=== PATIENT | male | born 1930 | race Caucasian/White ===

== ENCOUNTER → 2018-08-22 | Outpatient (CLI) | payer MEDICARE, OTHER ==
[~2018-08-22] MED LIST: AMI200 PO; ATOR40TA69 PO; CHOL4PAC15 PO; CLO75 PO; CLOB50SO11 TP; CYAN100T25 PO; DIA2 PO; DIAZ-1 PO; DILT360C35 PO; DILT360C49 PO; DILT360T9 PO; DILTIAZEM; ENA10 PO; ENAL20TA99 PO; ENO100I SC; FLU30SYR8 IM ONLY; FLU60SYR30 IM ONLY; HYDR30CR10 TP; KETO120S14 TP; LACT-272 PO; MECL25TA9 PO; OFF PLAVIX; OFF WARFARIN; SIMV-42 PO; SIMV-44 PO; TRA50 PO; TRIA15CR40 TP; WAR5 PO; WARF5TAB23 PO; [UNRECOGNIZED DRUG - CODE] IV; [UNRECOGNIZED DRUG - CODE] PO
--- NOTE | 2018-08-22 10:00 | RADIOLOGY IMAGING REPORT ---
FACILITY: [facility] [place] PATIENT NAME: Vipul Xiao : 1930 MR: [id number] V: [id number] EXAM DATE: ORDERING PHYSICIAN: DEIM GUZMAN TECHNOLOGIST: Location: [facility] Patient: Vipul Xiao : 1930 Visit/Account:[id number] Date of Sevice: 08/22/2018 SACRUM COCCYX HISTORY: see dx Additional history: None COMPARISON: None. FINDINGS: No evidence of displaced fractures in the sacrum or coccyx. The patient has had laminectomies throug h at least L2-L5 advanced multilevel degenerative disc disease. There is levoconvex curvature to the lumbar spine possibly positional or related scoliosis. IMPRESSION: No acute fractures are seen. If there is continued strong clinical suspicion CT would be the optimal study for further evaluation Report Dictated By: Milton Curran MD at 08/22/2018 9:49 AM Report E-Signed By: Milton Curran MD at 08/22/2018 9:54 AM WSN:[id number]
== END ==
LOC: RAD 08:54
PROVIDERS: ATTEND Internal Medicine
DX: M53.3 Sacrococcygeal disorders, not elsewhere classified (principal); W19.XXXA Unspecified fall, initial encounter
CPT/HCPCS: 72220

== ENCOUNTER → 2018-08-27 | Outpatient (CLI) | payer MEDICARE, OTHER ==
[~2018-08-27] MED LIST changes: +WARF-1 PO; +WARF2.5T62 PO
--- NOTE | 2018-08-27 12:35 | RADIOLOGY IMAGING REPORT ---
FACILITY: [facility] PATIENT NAME: Vipul Xiao : 1930 MR: [id number] V: [id number] EXAM DATE: ORDERING PHYSICIAN: DEMI GUZMAN TECHNOLOGIST: Location: [facility] [place] Patient: Vipul Xiao : 1930 Visit/Account:[id number] Date of Sevice: 08/27/2018 EXAMINATION: CT of the Paranasal Sinuses HISTORY: Cough TECHNIQUE: CT was performed through the paranasal sinuses without intravenous contrast administratio n. Coronal and sagittal reformatted images were generated. One of the following dose optimization techniques was utilized in the performance of this exam: autom ated exposure control; adjustment of the mA and/or kV according to patient size; or use of iterative reconstruction technique. Specific details can be referenced in the facility's radiology CT exam ope rational policy. COMPARISON: Head CT May 23, 2017 FINDINGS: Clear mastoid air cells. Tiny left maxillary sinus mucous retention cyst. Otherwise clear sinuses. No apparent nasal cavity polyp. Patent infundibula. Bilateral grecia bullosa. Small left nasal septum spur is positioned between the left middle and infe rior turbinates. Leftward mid nasal septum deviation measures 4 mm. Rightward anterior nasal septum d eviation measures 4 mm. 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 Normal temporomandibular joints. Degenerative pannus noted posterior to the dens. The visible extracranial and intracranial structures are normal for age. IMPRESSION: 1. Tiny left maxillary sinus mucous retention cyst. Otherwise clear sinuses. 2. 4 mm nasal septum deviation, see comments above. 3. 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 Report Dictated By: Sy Craig MD at 08/27/2018 12:25 PM Report E-Signed By: Sy Craig MD at 08/27/2018 12:30 PM WSN:[id number]
== END ==
LOC: CT 01:05
PROVIDERS: ATTEND Internal Medicine
DX: R09.89 Other specified symptoms and signs involving the circulatory and respiratory systems (principal); J34.1 Cyst and mucocele of nose and nasal sinus; J34.2 Deviated nasal septum; Q37.9 Unspecified cleft palate with unilateral cleft lip
CPT/HCPCS: 70486

== ENCOUNTER 2018-09-01 19:00 | Inpatient (IN) | payer MEDICARE, OTHER ==
[~2018-09-01] VITALS: Ht 162.6 cm; Wt 52.7 kg
[~2018-09-01 19:00] MED LIST changes: -WARF-1 PO; -WARF2.5T62 PO
--- NOTE | 2018-09-01 19:25 | ER Report ---
History and Physical Time Seen By MD: 19:25 HPI/ROS CHIEF COMPLAINT: Right hip pain HISTORY OF PRESENT ILLNESS: This is an 87-year-old male who presents to the emergency department with his family for right hip pain. According to the patient, and his daughter who is at the bedside, the patient has had an increased number of falls over the last 1-2 months secondary to his unsteadiness. This past Sunday he states he fell onto a carpeted surface, onto his right side, has had intermittent right hip pain since. Yesterday however the pain was not too bad however today the pain seems to increased in intensity, patient is having a very difficult time finding a comfortable position to sit in. No internal or external rotation, no ice deformities, he has been ambulating however it is very painful. Patient denies hitting his head, no loss of co nsciousness. Upon arrival his heart rate was noted to be irregular 120's-140's. The patient states that he did forget to take his diltiazem for his known atrial fibrillation. Denies chest pain or shortness of breath. No nausea or vomiting. No headaches or any other concerns at this time. REVIEW OF SYSTEMS: Constitutional: No fever, no chills. Eyes: No discharge. ENT: No sore throat. Cardiovascular: As above. Respiratory: No cough, no shortness of breath. Gastrointestinal: No abdominal pain, no vomiting. Genitourinary: No hematuria. Musculoskeletal: As above. Skin: No rashes. Neurological: No headache. Allergies: Coded Allergies: Penicillins (Verified Allergy, Intermediate, RASH, 09/01/18) Home Meds Active Scripts Ketoconazole (KETOCONAZOLE) 120 Ml Shampoo, 1 LINCOLN TP DAILY for 30 Days, #120 TUBE 1 Refill Prov:TRAN [facility]AGA [facility] 05/16/18 Hydrocortisone 2.5 % 30 GM CREAM (Hydrocortisone 2.5 % 30 GM CREAM) 2.5 % C ream.appl, 1 LINCOLN TP BID for 30 Days, #1 TUBE 1 Refill Prov:TRAN [facility]AGA [facility] 05/16/18 Clobetasol Propionate 0.05% Solution (CLOBETASOL PROPIONATE 0.05% SOLUTION) 50 Ml Solution, 1 LINCOLN TP BID for 30 Days, #1 BOT 2 Refills Prov:TRAN [facility] 02/14/18 Triamcinolone Acetonide 0.1% Cr 15 Gm Tube (TRIAMCINOLONE ACETONIDE 0.1% CREAM) 15 Gm Cream..g., 1 LINCOLN TP BID, #60 GM 3 Refills Prov:VICKI GILLIAM PHARMD 01/07/18 Lactose-Free Food/Fiber (JEVITY 1.5 DAVIS LIQUID) 1,000 Ml Liquid, 1000 ML PO QDAY, #30 BOTTLE 11 Refills Prov:VICKI GILLIAM PHARMD 03/06/16 Reported Medications Warfarin Sodium (COUMADIN) 5 Mg Tablet, 5 MG PO SUNDAY, SUNDAY, Sunday09/01/18 Warfarin Sodium (COUMADIN) 2.5 Mg Tablet, 2.5 MG PO sunday, sunday, sunday,Sunday09/01/18 Diltiazem Hcl (DILTIAZEM 24HR ER) 360 Mg Cap.er.24h, 1 CAP PO QDAY, CAP 04/21/15 Atorvastatin Calcium (ATORVASTATIN CALCIUM) 40 Mg Tablet, 0.5 TAB PO QDAY, TAB 02/22/15 Discontinued Reported Medications Tramadol Hcl (Ultram) 50 Mg Tab, 1 TAB PO QID PRN for pain, 0 Refills 01/06/10 Discontinued Scripts Warfarin Sodium (WARFARIN SODIUM) 5 Mg Tablet, 5 MG PO DIRECTED, #90 TAB 3 Refills Prov:DEMI GUZMAN MD 05/29/17 Meclizine Hcl (MECLIZINE HCL) 25 Mg Tablet, 25 MG PO Q6-8H PRN for DIZZINESS, #15 MG Prov:BITA CHAVEZ DO 05/23/17 Past Medical/Surgical History The patient has a past medical and surgical history of aneurysm of iliac artery, atrial fibrillation, hypertension, hypercholesterolemia, pulmonary embolus, colonoscopy with polyps removed, hiatal hernia, scoliosis, arthritis, multiple fractures, "cracked pelvis", chronic back pain, wears glasses, anxiety, appendectomy, laminectomy. Reviewed Nurses Notes: Yes Hx Smoking: Yes Smoking Status: Former Smoker Hx Substance Use Disorder: No Hx Alcohol Use: Yes Constitutional Vital Sign - Last 24 Hours 09/01/18 09/01/18 09/01/18 09/01/18 19:24 19:30 19:31 19:40 Temp 98.3 Pulse 124 137 Resp 0 19 B/P (MAP) 130/111 (117) 130/111 146/104 (118) Pulse Ox 88 93 O2 Delivery Room Air 09/01/18 09/01/18 09/01/18 09/01/18 20:00 20:05 20:20 20:30 Pulse 116 111 Resp 10 8 B/P (MAP) 137/85 (102) 148/121 (130) Pulse Ox 81 93 O2 Flow Rate 2.0 09/01/18 09/01/18 09/01/18 09/01/18 20:40 21:00 21:20 21:30 Pulse ??? 114 Resp 10 B/P (MAP) 147/116 (126) ???/??? (1665) 137/104 (115) Pulse Ox 89 09/01/18 09/01/18 09/01/18 09/01/18 21:40 22:00 22:20 22:30 Pulse 113 116 Resp 14 16 B/P (MAP) 131/91 (104) 137/89 (105) 139/96 (110) Pulse Ox 98 98 09/01/18 22:40 B/P (MAP) 147/109 (122) Physical Exam General Appearance: The patient is alert, has no immediate need for airway protection and no signs of toxicity. Eyes: Pupils equal and round no pallor or injection. ENT, Mouth: Mucous membranes are moist. Respiratory: There are no retractions, lungs are clear to auscultation. Cardiovascular: Irregular rate and rhythm. No murmurs, clicks or rubs. Gastrointestinal: Abdomen is soft and non tender, no masses, bowel sounds normal. Neurological: Alert and oriented 4. Moving all extremities. Following all commands. No focal neuro deficits. Skin: Warm and dry, no rashes. Healing wound to the scalp. Musculoskeletal: Neck is supple non tender. Extremities tenderness to the right hip and proximal femur. No crepitus or obvious deformities identified. No contusions or swelling. No internal or external rotation. DIFFERENTIAL DIAGNOSIS: After history and physical exam differential diagnosis was considered for fracture, contusion, hematoma. Medical Decision Making Data Points Result Diagram: 09/01/18 1936 09/02/18 0518 Laboratory Hematology Test 09/01/18 19:36 Red Blood Count 4.71 M/uL (4.00-5.60) Mean Corpuscular Volume 104.7 fL (80.0-96.0) Mean Corpuscular Hemoglobin 35.1 pg (26.0-33.0) Mean Corpuscular Hemoglobin Concent 33.5 g/dL (32.0-36.0) Red Cell Distribution Width 15.3 % (11.5-14.5) Mean Platelet Volume 9.1 fL (7.2-11.1) Neutrophils (%) (Auto) 77.6 % (39.4-72.5) Lymphocytes (%) (Auto) 8.9 % (17.6-49.6) Monocytes (%) (Auto) 11.1 % (4.1-12.4) Eosinophils (%) (Auto) 0.7 % (0.4-6.7) Basophils (%) (Auto) 1.7 % (0.3-1.4) Nucleated RBC Relative Count (auto) 0.1 /100WBC Neutrophils # (Auto) 6.7 K/uL (2.0-7.4) Lymphocytes # (Auto) 0.8 K/uL (1.3-3.6) Monocytes # (Auto) 1.0 K/uL (0.3-1.0) Eosinophils # (Auto) 0.1 K/uL (0.0-0.5) Basophils # (Auto) 0.1 K/uL (0.0-0.1) Nucleated RBC Absolute Count (auto) 0.01 K/uL Peripheral Blood Smear No Y/N Prothrombin Time 26.5 seconds (12.0-14.4) Prothromb Time International Ratio 2.39 Activated Partial Thromboplast Time 53 seconds (23-35) Troponin I 0.023 ng/ml Chemistry Test 09/01/18 19:36 White Blood Count 8.6 k/uL (4.5-11.0) Red Blood Count 4.71 M/uL (4.00-5.60) Hemoglobin 16.5 g/dL (14.0-18.0) Hematocrit 49.3 % (42.0-52.0) Mean Corpuscular Volume 104.7 fL (80.0-96.0) Mean Corpuscular Hemoglobin 35.1 pg (26.0-33.0) Mean Corpuscular Hemoglobin Concent 33.5 g/dL (32.0-36.0) Red Cell Distribution Width 15.3 % (11.5-14.5) Platelet Count 113 K/uL (150-450) Mean Platelet Volume 9.1 fL (7.2-11.1) Neutrophils (%) (Auto) 77.6 % (39.4-72.5) Lymphocytes (%) (Auto) 8.9 % (17.6-49.6) Monocytes (%) (Auto) 11.1 % (4.1-12.4) Eosinophils (%) (Auto) 0.7 % (0.4-6.7) Basophils (%) (Auto) 1.7 % (0.3-1.4) Nucleated RBC Relative Count (auto) 0.1 /100WBC Neutrophils # (Auto) 6.7 K/uL (2.0-7.4) Lymphocytes # (Auto) 0.8 K/uL (1.3-3.6) Monocytes # (Auto) 1.0 K/uL (0.3-1.0) Eosinophils # (Auto) 0.1 K/uL (0.0-0.5) Basophils # (Auto) 0.1 K/uL (0.0-0.1) Nucleated RBC Absolute Count (auto) 0.01 K/uL Peripheral Blood Smear No Y/N Prothrombin Time 26.5 seconds (12.0-14.4) Prothromb Time International Ratio 2.39 Activated Partial Thromboplast Time 53 seconds (23-35) Troponin I 0.023 ng/ml Coagulation Test 09/01/18 19:36 Prothrombin Time 26.5 seconds Prothromb Time International Ratio 2.39 Activated Partial Thromboplast Time 53 seconds EKG/Imaging EKG Interpretation 12 lead EKG: Time of EKG 1929. Rhythm: Atrial fibrillation with RVR, ventricular rate 119. Joseph: normal QRS: normal ST segments: No ST depression or elevation identified. 05/23/2017 EKG showing atrial flutter, no other significant changes noted. Imaging Location: [facility] - [place], [place] Patient: Vipul Xiao : 1930 Visit/Account:[id number] Date of Sevice: 09/01/2018 CT of the pelvis without contrast: Indication: Fall. Technique: Helical CT was performed through the pelvis without contrast. Multiplanar reconstructions are reviewed. One of the following dose optimization techniques was utilized in the performance of this exam: Automated exposure control; adjustment of the mA and/or kV according to the patient's size; or use of an iterative reconstruction technique. Specific details can be referenced in the facility's radiology CT exam operational policy. Comparison: Plain radiographs dated 08/22/2018. Findings: There appear to be recent nondisplaced fractures in both sacral wings, best visualized in the axial plane. No other acute skeletal deformities are clearly identified. In particular, there are no signs of hip fracture or dislocation. There are chronic osteoarthritic changes in the bilateral sacroiliac joints. There is marked degenerative disc disease and osteoarthritis in the lower lumbar spine. There is uniform mineralization of the skeletal structures. No destructive skeletal lesions are identified. No focal soft tissue deformity or fluid collection is clearly identified. There is diffuse atherosclerotic calcification in the distal aorta, iliac, and proximal femoral arteries. Impression: There appear to be recent nondisplaced fractures in both sacral wings. No other acute skeletal deformities are clearly identified. Report Dictated By: Mathieu Storm MD at 09/01/2018 9:53 PM Report E-Signed By: Mathieu Storm MD at 09/01/2018 10:10 PM WSN:[id number] Location: [facility] - [place], [place] Patient: Vipul Xiao : 1930 Visit/Account:[id number] Date of Sevice: 09/01/2018 CT of the right femur, without contrast: Indication: Fall. Technique: Helical CT was performed through the right femur without contrast. Axial, coronal, and sagittal reconstructions are reviewed. Images near the right knee are suboptimal, due to motion artifact. One of the following dose optimization techniques was utilized in the performance of this exam: Automated exposure control; adjustment of the mA and/or kV according to the patient's size; or use of an iterative reconstruction technique. Specific details can be referenced in the facility's radiology CT exam operational policy. Comparison: None available. Findings: There is no definite evidence of fracture, dislocation, or acute skeletal deformity. A fracture of the distal femur or patella cannot be excluded, due to motion artifact. If clinically indicated, follow-up evaluation with plain radiographs is suggested. There is normal mineralization of the visualized skeletal structures. No destructive skeletal lesions are identified. There is no significant arthritis in the right hip. No evidence of focal soft tissue deformity or fluid collection. There is diffuse atherosclerotic calcification in the iliac, femoral, and popliteal arteries. Impression: No definite evidence of fracture, dislocation, or acute skeletal deformity. Report Dictated By: Mathieu Storm MD at 09/01/2018 10:10 PM Report E-Signed By: Mathieu Storm MD at 09/01/2018 10:18 PM WSN:[id number] Location: [facility] - [place], [place] Patient: Vipul Xiao : 1930 Visit/Account:[id number] Date of Sevice: 09/01/2018 PORTABLE CHEST: Indication: Injury. Technique: A single frontal film was obtained. Comparison: 05/23/2017 Skeletal and soft tissue structures: There are chronic degenerative changes in the left shoulder and thoracic spine. No acute skeletal deformity is clearly identified. Heart and mediastinum: There is moderate cardiomegaly. The mediastinal contours appear normal. Lung mims: Well-expanded and clear. No acute parenchymal process is identified. Pleural spaces: Unremarkable. Impression: Cardiomegaly. No acute process is identified in the lung mims. Report Dictated By: Mathieu Storm MD at 09/01/2018 9:48 PM Report E-Signed By: Mathieu Storm MD at 09/01/2018 9:53 PM WSN:[id number] ED Course/Re-evaluation Clinical Indication for ER IV: IV Access ED Course The patient was admitted to room. A history and physical were obtained. Differ ential diagnoses were considered. An IV was started. A CBC, CMP, troponin were obtained. EKG showing atrial fibrillation with RVR at a rate of 119. The patient was given 50 mg IV diltiazem, followed by 120 mg extended release diltiazem. CBC showing MCV 104.7, MCH 35.1, platelets 113, chemistry showing alk phosphatase 206, negative troponin, INR 2.39. After reviewing the patient's historical data from 2017 lab studies are within the patient's normal limits other than alk phosphatase is elevated. A CT of the pelvis is showing a recent nondisplaced fracture of both sacral wings, no other acute abnormalities of the pelvis or femur. I reviewed the case with Dr. Smith as noted below, else reviewed the case with Dr. Emma mcnair the hospitalist as noted below. I reviewed the results with the patient and his family we discussed and admission to the hospital, they are in agreement with an admission for pain control, as well as physical and occupational therapy and possible evaluation for home health. The patient was also given 50 g IV fentanyl which drastically reduced the patient's discomfort. 09/01/2018 10:25:33 pm I did speak with Dr. Smith, the orthopedist bone process operator regarding the patient's case, this is a nonsurgical injury. Weightbearing and ambulation as tolerated. 09/01/2018 10:39:46 pm I did speak with Dr. Nathan mcnair, the hospitalist bone process operator regarding the patient's case, we discussed the case, he's accepted the patient into the hospitalist services. Patient will be admitted to the medical floor. Decision to Disposition Date: Sep 01, 2018 Decision to Disposition Time: 22:39 Depart Departure Latest Vital Signs Vital Signs Date Time Temp Pulse Resp B/P (MAP) Pulse Ox O2 Delivery O2 Flow Rate FiO2 09/01/18 22:40 147/109 (122) 09/01/18 22:30 116 16 98 09/01/18 20:05 2.0 09/01/18 19:31 98.3 Room Air Impression: Primary Impression: Fracture of sacrum without disruption of pelvic ring Additional Impressions: Fall in home Atrial fibrillation Condition: Improved Disposition: Admitted from ER Referrals: DEMI GUZMAN MD (PCP) Problem Qualifiers Additional Impressions: Fall in home Encounter type: initial encounter Qualified Codes: W19.XXXA - Unspecified fall, initial encounter; Y92.009 - Unspecified place in unspecified non- institutional (private) residence as the place of occurrence of the external cause Atrial fibrillation Atrial fibrillation type: chronic Qualified Codes: I48.2 - Chronic atrial fibrillation UMER RUBIOP- Sep 01, 2018 19:25
[2018-09-01] MEDS ORDERED: DILTIAZEM 5 MG/ML 5ML IVPUSH IVP ONE (19:50)
[2018-09-01 19:57] LABS: PLATELET COUNT, AUTOMATED 113 K/uL (150-450)
[2018-09-01 20:03] LABS: INR 2.39
[2018-09-01] MEDS ORDERED: fentaNYL CITR 100 MCG/2 ML AMP IVP ONE (20:05)
[2018-09-01] MEDS ORDERED: DILTIAZEM CD 120 MG CAPCR PO ONE (20:25)
--- NOTE | 2018-09-01 20:33 | EKG ---
FACILITY: [facility] PATIENT NAME: VALARIE CARR : [id number] MR: [id number] V: [id number] EXAM DATE: ORDERING PHYSICIAN: UMER RUBIO TECHNOLOGIST: FRANCA Test Reason : A FIB Blood Pressure : / mmHG Vent. Rate : 119 BPM Atrial Rate : 093 BPM P-R Int : 000 ms QRS Dur : 098 ms QT Int : 296 ms P-R-T Axes : 000 016 068 degrees QTc Int : 416 ms Atrial fibrillation with rapid ventricular response Incomplete right bundle branch block Abnormal ECG When compared with ECG of 23-MAY-2017 15:19, Atrial fibrillation has replaced Atrial flutter Confirmed by Dario Carson ([id number]) on 09/01/2018 11:16:00 PM Referred By: Confirmed By:Dario Marino
--- NOTE | 2018-09-01 21:58 | RADIOLOGY IMAGING REPORT ---
FACILITY: [facility] PATIENT NAME: Vipul Xiao : 1930 MR: [id number] V: [id number] EXAM DATE: ORDERING PHYSICIAN: UMER RUBIO TECHNOLOGIST: Location: [facility] Patient: Vipul Xiao : 1930 Visit/Account:[id number] Date of Sevice: 09/01/2018 PORTABLE CHEST: Indication: Injury. Technique: A single frontal film was obtained. Comparison: 05/23/2017 Skeletal and soft tissue structures: There are chronic degenerative changes in the left shoulder and thoracic spine. No acute skeletal deformity is clearly identified. Heart and mediastinum: There is moderate cardiomegaly. The mediastinal contours appear normal. Lung mims: Well-expanded and clear. No acute parenchymal process is identified. Pleural spaces: Unremarkable. Impression: Cardiomegaly. No acute process is identified in the lung mims. Report Dictated By: Mathieu Storm MD at 09/01/2018 9:48 PM Report E-Signed By: Mathieu Storm MD at 09/01/2018 9:53 PM WSN:[id number]
--- NOTE | 2018-09-01 22:14 | RADIOLOGY IMAGING REPORT ---
FACILITY: [facility] PATIENT NAME: Vipul Xiao : 1930 MR: [id number] V: [id number] EXAM DATE: ORDERING PHYSICIAN: UMER RUBIO TECHNOLOGIST: Location: [place] [facility] - [place] Patient: Vipul Xiao : 1930 Visit/Account:[id number] Date of Sevice: 09/01/2018 CT of the pelvis without contrast: Indication: Fall. Technique: Helical CT was performed through the pelvis without contrast. Multiplanar reconstructions are reviewed. One of the following dose optimization techniques was utilized in the performance of th is exam: Automated exposure control; adjustment of the mA and/or kV according to the patient's size; or use of an iterative reconstruction technique. Specific details can be referenced in the facility's radiology CT exam operational policy. Comparison: Plain radiographs dated 08/22/2018. Findings: There appear to be recent nondisplaced fractures in both sacral wings, best visualized in the axial p marguerite. No other acute skeletal deformities are clearly identified. In particular, there are no signs o f hip fracture or dislocation. There are chronic osteoarthritic changes in the bilateral sacroiliac joints. There is marked degenera tive disc disease and osteoarthritis in the lower lumbar spine. There is uniform mineralization of e skeletal structures. No destructive skeletal lesions are identified. No focal soft tissue deformity or fluid collection is clearly identified. There is diffuse atheroscle rotic calcification in the distal aorta, iliac, and proximal femoral arteries. Impression: There appear to be recent nondisplaced fractures in both sacral wings. No other acute ske letal deformities are clearly identified. Report Dictated By: Mathieu Storm MD at 09/01/2018 9:53 PM Report E-Signed By: Mathieu Storm MD at 09/01/2018 10:10 PM WSN:[id number]
--- NOTE | 2018-09-01 22:22 | RADIOLOGY IMAGING REPORT ---
FACILITY: [facility] - [place] PATIENT NAME: Vipul Xiao : 1930 MR: [id number] V: [id number] EXAM DATE: ORDERING PHYSICIAN: UMER RUBIO TECHNOLOGIST: Location: [facility] - [place] Patient: Vipul Xiao : 1930 Visit/Account:[id number] Date of Sevice: 09/01/2018 CT of the right femur, without contrast: Indication: Fall. Technique: Helical CT was performed through the right femur without contrast. Axial, coronal, and sag ittal reconstructions are reviewed. Images near the right knee are suboptimal, due to motion artifact . One of the following dose optimization techniques was utilized in the performance of this exam: Autom ated exposure control; adjustment of the mA and/or kV according to the patient's size; or use of an i terative reconstruction technique. Specific details can be referenced in the facility's radiology CT exam operational policy. Comparison: None available. Findings: There is no definite evidence of fracture, dislocation, or acute skeletal deformity. A frac ture of the distal femur or patella cannot be excluded, due to motion artifact. If clinically indicat ed, follow-up evaluation with plain radiographs is suggested. There is normal mineralization of the visualized skeletal structures. No destructive skeletal lesions are identified. There is no significant arthritis in the right hip. No evidence of focal soft tissue deformity or fluid collection. There is diffuse atherosclerotic calc ification in the iliac, femoral, and popliteal arteries. Impression: No definite evidence of fracture, dislocation, or acute skeletal deformity. Report Dictated By: Mathieu Storm MD at 09/01/2018 10:10 PM Report E-Signed By: Mathieu Storm MD at 09/01/2018 10:18 PM WSN:[id number]
--- NOTE | 2018-09-01 22:56 | History & Physical ---
History of Present Illness Chief Complaint Hip pain History of Present Illness 87M with an increased number of falls over the last 1-2 months secondary to his unsteadiness. Sunday he fell onto a carpeted surface, onto his right side,intermittent right hip pain since. Prior to presentation increased in intensity, patient is having a very difficult time finding a comfortable position to sit in. Pain on ambulation which is making him a max assist with ambulation. The patient states that he did forget to take his diltiazem for his known atrial fibrillation and is in afib with RVR on arrival. He is being admitted for pain control, monitoring of heart rate, evaluation by PT/OT. 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 (3) Obstructive sleep apnea Status: Chronic (4) Essential hypertension Status: Chronic Home Meds Active Scripts Ketoconazole (KETOCONAZOLE) 120 Ml Shampoo, 1 [facility] TP DAILY for 30 Days, #120 TUBE 1 Refill Prov:TRAN ARTEAGA [facility] 05/16/18 Hydrocortisone 2.5 % 30 GM CREAM (Hydrocortisone 2.5 % 30 GM CREAM) 2.5 % Cream.appl, 1 [place] TP BID for 30 Days, #1 TUBE 1 Refill Prov:TRAN ARTEAGA [facility] 05/16/18 Clobetasol Propionate 0.05% Solution (CLOBETASOL PROPIONATE 0.05% SOLUTION) 50 Ml Solution, 1 [place] TP BID for 30 Days, #1 BOT 2 Refills Prov:TRAN ARTEAGA [facility] 02/14/18 Triamcinolone Acetonide 0.1% Cr 15 Gm Tube (TRIAMCINOLONE ACETONIDE 0.1% CREAM) 15 Gm Cream..g., 1 [place] TP BID, #60 GM 3 Refills Prov:VICKI GILLIAM PHARMD 01/07/18 Lactose-Free Food/Fiber (JEVITY 1.5 DAVIS LIQUID) 1,000 Ml Liquid, 1000 ML PO QDAY, #30 BOTTLE 11 Refills Prov:VICKI GILLIAM PHARMD 03/06/16 Reported Medications Warfarin Sodium (COUMADIN) 5 Mg Tablet, 5 MG PO SUNDAY, SUNDAY, Sunday09/01/18 Warfarin Sodium (COUMADIN) 2.5 Mg Tablet, 2.5 MG PO sunday, sunday, sunday,Sunday09/01/18 Diltiazem Hcl (DILTIAZEM 24HR ER) 360 Mg Cap.er.24h, 1 CAP PO QDAY, CAP 04/21/15 Atorvastatin Calcium (ATORVASTATIN CALCIUM) 40 Mg Tablet, 0.5 TAB PO QDAY, TAB 02/22/15 Discontinued Reported Medications Tramadol Hcl (Ultram) 50 Mg Tab, 1 TAB PO QID PRN for pain, 0 Refills 01/06/10 Discontinued Scripts Warfarin Sodium (WARFARIN SODIUM) 5 Mg Tablet, 5 MG PO DIRECTED, #90 TAB 3 Refills Prov:DEMI GUZMAN MD 05/29/17 Meclizine Hcl (MECLIZINE HCL) 25 Mg Tablet, 25 MG PO Q6-8H PRN for DIZZINESS, #15 MG Prov:BITA CHAVEZ DO 05/23/17 Allergies: Coded Allergies: Penicillins (Verified Allergy, Intermediate, RASH, 09/01/18) Patient History: Abdominal aortic aneurysm MOTHER, , Age:65 FH: abdominal aortic aneurysm FH: alcohol abuse FATHER, , Age:77 FH: cancer FATHER, , Age:77 Hx Smoking: Yes Smoking Status: Former Smoker Hx Alcohol Use: Yes Hx Substance Use Disorder: No Review of Systems Neurological: No Confusion, No Weakness Cardiovascular: No Chest Pain Respiratory: No Shortness of Breath Gastrointestinal: No Nausea, No Vomiting Musculoskeletal: Pain Exam Vital Signs Vital Signs Date Time Temp Pulse Resp B/P (MAP) Pulse Ox O2 Delivery O2 Flow Rate FiO2 09/01/18 23:54 114 09/01/18 23:00 12 122/89 (100) 82 09/01/18 20:05 2.0 09/01/18 19:31 98.3 Room Air General Appearance: Alert, Awake, No Acute Distress, Afebrile Neuro: No Gross deficits ENT: Normal Cardiovascular: Other (Irregularly irregular) Respiratory: No Respiratory Distress GI: Abd Soft and Non-Tender Extremities: Soft and Non Tender, Warm, Pulses, Perfused; No Edema Integumentary: Skin Intact without Lesion / Mass, Other (venous stasis changes to anterior tibial area) Medical Decision Making Data Points Result Diagram: 09/01/18193509/01/181935 Assessment and Plan Problems: (1) Atrial fibrillation with RVR Assessment & Plan: Given IV diltiazem loading dose and PO dose in ER. Will monitor on telemetry and continue home dose. (2) Fracture of sacrum without disruption of pelvic ring Status: Acute Assessment & Plan: Will provide pain control and have PT/OT evaluate patient. May need further rehab given frequent falls. (3) Alkaline phosphatase elevation Assessment & Plan: Unclear etiology, GGT pending to evaluate for biliary vs bone source. (4) Atrial fibrillation Status: Chronic Assessment & Plan: On chronic diltiazem, continued. Venous Thromboembolism Antithrombotics Is Pt On Any Antithrombotics?: Yes Exam Sepsis Risk: No Definite Risk BURGOS TAMI WELCH DO Sep 01, 2018 22:56
[2018-09-01] MEDS ORDERED: INFLUENZA VIRUS VAC 0.5ML SYR IM ONLY ONE (23:00)
[2018-09-01] MEDS ORDERED: ACETAMINOPHEN 325 MG TAB PO PRN (23:00)
[2018-09-01] MEDS ORDERED: IBUPROFEN 200 MG TAB PO PRN (23:00)
[2018-09-01] MEDS ORDERED: ONDANSETRON 4 MG/2 ML VIAL IVP PRN (23:00)
[2018-09-01] MEDS ORDERED: FLUSH 10 ML SYR IVP PRN (23:00)
[2018-09-01] MEDS ORDERED: MECLIZINE HCL 25 MG TAB PO PRN (23:00)
[2018-09-01 23:35] VITALS: BP 116/90
[2018-09-01] MEDS ORDERED: WARF2.5T62 PO (23:52)
[2018-09-01] MEDS ORDERED: WARF-1 PO (23:53)
[2018-09-02 03:24] VITALS: BP 142/97
[2018-09-02 07:34] VITALS: BP 127/78
[2018-09-02] MEDS: DILTIAZEM CD 180 MG CAPCR PO SCH (09:16)
--- NOTE | 2018-09-02 09:58 | Hospitalist Progress Note ---
Subjective Progress Notes Subjective He was admitted after sacral wing fracture. He denies any pain this morning. He still has not been out of bed yet. Patient Complains of: Cardiovascular: No: Chest Pain Respiratory: No: Shortness of Breath Physical Exam Vital Signs Date Time Temp Pulse Resp B/P (MAP) Pulse Ox O2 Delivery O2 Flow Rate FiO2 09/02/18 07:40 86 Room Air 09/02/18 07:34 98.0 116 20 127/78 (94) 2.0 Intake and Output 09/02/18 07:00 Intake Total 50 ml Balance 50 ml Intake Oral 50 ml # Voids 3 General Appearance: Alert, Awake, No Acute Distress, Afebrile Neuro: No Gross deficits Cardiovascular: Regular Rate and Rhythm Respiratory: No Respiratory Distress, Clear to Auscultation Psych: Alert & Oriented X3, Appropriate Mood & Affect Result Diagram: 09/01/18 19309/02/18 0518 Assessment and Plan Problems: (1) Atrial fibrillation with RVR Assessment & Plan: Given IV diltiazem loading dose and PO dose in ER. Will monitor on telemetry and continue home dose. (2) Fracture of sacrum without disruption of pelvic ring Status: Acute Assessment & Plan: Will provide pain control and have PT/OT evaluate patient. May need further rehab given frequent falls. (3) Alkaline phosphatase elevation Assessment & Plan: Unclear etiology, GGT pending to evaluate for biliary vs bone source. (4) Atrial fibrillation Status: Chronic Assessment & Plan: On chronic diltiazem, continued. Exam Sepsis Risk: No Definite Risk CASSIDY JONES MANAGER ENVIRONMENTAL Sep 02, 2018 09:58
[2018-09-02 10:17] VITALS: Ht 162.6 cm; Wt 52.7 kg
[2018-09-02 11:03] VITALS: BP 121/75
[2018-09-02] MEDS: TRIAMCINOLONE ACE 0.1% CR 15GM TP SCH ×2 (11:37→20:33)
--- NOTE | 2018-09-02 12:43 | NUR ---
Physical Therapy Impression PT eval complete. Pt requires Mod A for bed mobility and Mod A to perform stand pivot transfer bed>shower chair using RW. Recommend short-term subacute rehab. Physical Therapy Goals 1. Mod I bed mobility. 2. Mod I transfers. 3. Mod I gait x 150' with RW. 4. Ascend/descend 3 stairs Mod I. Patient's Goals
--- NOTE | 2018-09-02 12:49 | NUR ---
Occupational Therapy Impression OT evaluation completed with PT. Pt. would benefit from OT services 5x/ week to increase independence with ADL's. Pt. will need further rehab prior to d/c to home- short term subacute rehab is recommended. Occupational Therapy Goals 1. Pt. to perform showering activities with Min A. 2. Pt. to perform toileting activities with Mod I. 3. Pt. to perform dressing activities with Min A. 4. Pt. to perform grooming activities with I. Patient's Goal
[2018-09-02] MEDS ORDERED: WARFARIN SOD 5 MG TAB PO SCH ×2 (13:00)
[2018-09-02] MEDS: LIDOCAINE 5% PATCH TP SCH (13:30)
[2018-09-02 15:02] VITALS: BP 126/72
[2018-09-02 20:13] VITALS: BP 104/63
[2018-09-02] MEDS: PATCH REMOVAL 1 EA TP SCH (20:33)
[2018-09-02] MEDS: ATORVASTATIN 10 MG TAB PO SCH (20:33)
[2018-09-02] MEDS: APAP/HYDROCODONE 325/5 TAB PO PRN (22:23)
[2018-09-03 05:05] VITALS: BP 121/88
[2018-09-03 07:18] VITALS: BP 116/76
--- NOTE | 2018-09-03 08:04 | NUR ---
ECF Referral - met with patient who is eager to get stronger and go home. Explained rehab philosophy and answered questions for him. PASRR negative. Will complete his qualifying stay tonight, is eligible for admission 09/04/18 if he remains medically stable.
--- NOTE | 2018-09-03 08:16 | Hospitalist Progress Note ---
Subjective Progress Notes Subjective He was admitted after sacral wing fracture. He denies any pain when resting in bed. He continues to work with therapy, and have recommended short term acute rehab. Patient Complains of: Cardiovascular: No: Chest Pain Respiratory: No: Shortness of Breath Physical Exam Vital Signs Date Time Temp Pulse Resp B/P (MAP) Pulse Ox O2 Delivery O2 Flow Rate FiO2 09/03/18 07:18 98.1 89 20 116/76 (89) 94 Nasal Cannula 1.0 Intake and Output 09/03/18 06:59 Intake Total 1090 ml Balance 1090 ml Intake Oral 1090 ml # Voids 5 General Appearance: Alert, Awake, No Acute Distress, Afebrile Neuro: No Gross deficits Cardiovascular: Regular Rate and Rhythm Respiratory: No Respiratory Distress, Clear to Auscultation GI: Soft and Non-Tender Extremities: Warm, Perfused; No Edema Psych: Alert & Oriented X3, Appropriate Mood & Affect Result Diagram: 09/01/18193509/02/18 0518 Assessment and Plan Problems: (1) Atrial fibrillation with RVR Assessment & Plan: He was noted to have AFib with RVR in the emergency department. He was given IV diltiazem loading dose and PO dose in ER. He was monitored on telemetry and then resumed his home dose. (2) Fracture of sacrum without disruption of pelvic ring Status: Acute Assessment & Plan: Will provide pain control and have PT/OT evaluate patient. May need further rehab given frequent falls. (3) Alkaline phosphatase elevation Assessment & Plan: Unclear etiology, GGT pending to evaluate for biliary vs bone source. (4) Atrial fibrillation Status: Chronic Assessment & Plan: On chronic diltiazem, continued. Exam Sepsis Risk: No Definite Risk Problem Qualifiers (1) Atrial fibrillation: Atrial fibrillation type: chronic Qualified Codes: I48.2 - Chronic atrial fibrillation CASSIDY JONES COMMUNITY SERVICE ORGANIZATION DIRECTOR Sep 03, 2018 08:16
[2018-09-03] MEDS: DILTIAZEM CD 180 MG CAPCR PO SCH (09:10)
[2018-09-03] MEDS: TRIAMCINOLONE ACE 0.1% CR 15GM TP SCH ×2 (09:10→20:22)
[2018-09-03] MEDS: LIDOCAINE 5% PATCH TP SCH (09:10)
[2018-09-03 11:12] VITALS: BP 115/78
[2018-09-03] MEDS: APAP/HYDROCODONE 325/5 TAB PO PRN ×2 (12:55→22:47)
[2018-09-03] MEDS ORDERED: WARFARIN SOD 2.5 MG TAB PO SCH (13:00)
--- NOTE | 2018-09-03 13:24 | NUR ---
Occupational Therapy Impression Co-treat with PT. Pt. performed stand step pivot transfer from EOB to elizabeth chair with use of FWW with Min A. Pt. required verbal cues in order to perform a controlled stand to sit transfer (reaching back with hands for chair). Recommend short term subacute rehab upon d/c. Occupational Therapy Goals 1. Pt. to perform showering activities with Min A. 2. Pt. to perform toileting activities with Mod I. 3. Pt. to perform dressing activities with Min A. 4. Pt. to perform grooming activities with I. Patient's Goal
[2018-09-03] MEDS ORDERED: LACT-272 PO (14:55)
[2018-09-03 16:15] VITALS: BP 115/86
[2018-09-03 18:58] VITALS: BP 107/75
[2018-09-03] MEDS: PATCH REMOVAL 1 EA TP SCH (20:22)
[2018-09-03] MEDS: ATORVASTATIN 10 MG TAB PO SCH (20:22)
[2018-09-04 04:53] VITALS: BP 125/73
[2018-09-04 06:54] VITALS: BP 127/81
[2018-09-04] MEDS: TRIAMCINOLONE ACE 0.1% CR 15GM TP SCH (08:42)
[2018-09-04] MEDS: DILTIAZEM CD 180 MG CAPCR PO SCH (08:42)
[2018-09-04] MEDS: LIDOCAINE 5% PATCH TP SCH (08:43)
--- NOTE | 2018-09-04 08:59 | Transfer Summary (ECF/SWB) ---
Transfer Summary (ECF/SWB) Problems: (1) Atrial fibrillation with RVR Assessment & Plan: He was noted to have AFib with RVR in the emergency d epartment. He was given IV diltiazem loading dose and PO dose in ER. He was monitored on telemetry and then resumed his home dose. (2) Fracture of sacrum without disruption of pelvic ring Status: Acute Assessment & Plan: He presented with a bilateral sacrum wing fracture. He was provided with pain control and PT/OT evaluated patient. It was recommended he have subacute short term rehab. (3) Alkaline phosphatase elevation Assessment & Plan: He presented with elevated Alkaline phosphatase. Unclear etiology, GGT slightly elevated at 141. GGT was to evaluate for biliary vs bone source. He does drink a glass of wine daily for many years, and does use Tylenol for pain frequently. He appears to have elevation noted from 2017. We will continue to trend the labs on ECF. (4) Atrial fibrillation Status: Chronic Assessment & Plan: On chronic diltiazem, continued. Latest Vital Signs Vital Signs Date Time Temp Pulse Resp B/P (MAP) Pulse Ox O2 Delivery O2 Flow Rate FiO2 09/04/18 07:34 82 09/04/18 07:29 Nasal Cannula 1.0 09/04/18 06:54 98.0 103 20 127/81 (96) Result Diagram: 09/01/18 19309/02/18 0518 Condition: Improved Disposition: SNF/NH Treatment Goals and Plan Patient requires [facility] for End of Life Care/Comfort Care and is ready for admission to Extended Care. Any change in condition is described below. Services Required: PT, OT Copies To 1: DEMI GUZMAN MD ; Problem Qualifiers (1) Atrial fibrillation: Atrial fibrillation type: chronic Qualified Codes: I48.2 - Chronic atrial fibrillation CASSIDY JONES BUDGET ENGINEER Sep 04, 2018 08:59
[2018-09-04 09:16] LABS: PLATELET COUNT, AUTOMATED 131 K/uL (150-450)
[2018-09-04 09:25] LABS: INR 3.01
[2018-09-05] MEDS ORDERED: WARF-1 PO (09:30)
== END 2018-09-04 10:50 | DRG 552 ==
LOC: ER 19:29 → MED 22:42
PROVIDERS: ADMIT Internal Medicine; ATTEND Internal Medicine
DX: S32.10XA Unspecified fracture of sacrum, initial encounter for closed fracture (principal); G47.33 Obstructive sleep apnea (adult) (pediatric); I48.2 Chronic atrial fibrillation; I10 Essential (primary) hypertension; G89.29 Other chronic pain; E78.00 Pure hypercholesterolemia, unspecified; N40.1 Benign prostatic hyperplasia with lower urinary tract symptoms; F41.9 Anxiety disorder, unspecified; W18.30XA Fall on same level, unspecified, initial encounter; Z87.891 Personal history of nicotine dependence; Z79.01 Long term (current) use of anticoagulants; Z88.0 Allergy status to penicillin; Z86.711 Personal history of pulmonary embolism
CPT/HCPCS: 36415; 71045; 72192; 82040; 82247; 82310; 82374; 82435; 82565; 82947; 82977; 84075; 84132; 84155; 84295; 84450; 84460; 84484; 84520; 85025; 85610; 85730; 93005; 96374; 96375; 97162; 97165; 99285; J3010; J3490

== ENCOUNTER 2018-09-04 10:50 | Inpatient (IN) | payer MEDICARE, OTHER ==
[2018-09-02 10:17] VITALS: Ht 162.6 cm; Wt 60.0 kg
[~2018-09-04] VITALS: Ht 162.6 cm; Wt 60.0 kg
[~2018-09-04 10:50] MED LIST changes: +WARF-1 PO; +WARF2.5T62 PO
[2018-09-04 11:00] VITALS: BP 121/72
[2018-09-04] MEDS ORDERED: APAP/HYDROCODONE 325/5 TAB PO PRN (11:09)
[2018-09-04] MEDS ORDERED: TRIAMCINOLONE ACE 0.1% CR 15GM TP SCH (11:09)
--- NOTE | 2018-09-04 11:20 | Consultant Pharmacy Review ---
Floral Design Teacher Review Medication Review Do All Mecications have a Diag: Yes Other General Cautions Lexicomp Interaction Analysis A = No known interaction C = Monitor therapy X = Avoid combination B = No action needed D = Consider therapy modification Drugs in this analysis: Acetaminophen; Cardizem CD; Coumadin; Lidocaine (Topical); Lipitor; Lortab; Motrin (CAN); Triamcinolone (Topical) * Drug-Drug Interactions * D Cardizem CD (DilTIAZem) Lipitor (AtorvaSTATin) D Coumadin (Vitamin K Antagonists) Motrin (CAN) (Nonsteroidal Anti- Inflammatory Agents (Nonselective)) C Acetaminophen Coumadin (Vitamin K Antagonists) Depends on Dose C Acetaminophen (Methemoglobinemia Associated Agents) Lidocaine (Topical) (Local Anesthetics) C Cardizem CD (CY Inhibitors (Moderate)) Lidocaine (Topical) (CY Substrates (High risk with Inhibitors)) C Cardizem CD (CY Inhibitors (Moderate)) Lortab (HYDROcodone) Depends on Additional drug/group C Coumadin (Vitamin K Antagonists) Lortab (Acetaminophen) Depends on Dose C Lidocaine (Topical) (Local Anesthetics) Lortab (Methemoglobinemia Associated Agents) B Acetaminophen Lortab (Opioid Analgesics) B Cardizem CD (Calcium Channel Blockers) Motrin (CAN) (Nonsteroidal Anti- Inflammatory Agents) A Coumadin (Vitamin K Antagonists) Lipitor (AtorvaSTATin) Pneumococcal Vaccine HX Pneumo Vac ([id number]): Yes (2010) HX Pneumo Vac (Pneumovax): Yes HARLEY CHURCHILL Sep 04, 2018 11:20
--- NOTE | 2018-09-04 11:27 | Consultant Pharmacy Review ---
Associate Professor Of Criminal Justice Review Beers Criteria Medication 2015 Pain Medications: Ibuprofen (400 MG Q6 HOURS PRN) Other General Cautions Lexicomp Interaction Analysis A = No known interaction C = Monitor therapy X = Avoid combination B = No action needed D = Consider therapy modification Drugs in this analysis: Acetaminophen; Cardizem CD; Coumadin; Lidocaine (Topical); Lipitor; Lortab; Motrin (CAN); Triamcinolone (Topical) * Drug-Drug Interactions * D Cardizem CD (DilTIAZem) Lipitor (AtorvaSTATin) D Coumadin (Vitamin K Antagonists) Motrin (CAN) (Nonsteroidal Anti- Inflammatory Agents (Nonselective)) C Acetaminophen Coumadin (Vitamin K Antagonists) Depends on Dose C Acetaminophen (Methemoglobinemia Associated Agents) Lidocaine (Topical) (Local Anesthetics) C Cardizem CD (CY Inhibitors (Moderate)) Lidocaine (Topical) (CY Substrates (High risk with Inhibitors)) C Cardizem CD (CY Inhibitors (Moderate)) Lortab (HYDROcodone) Depends on Additional drug/group C Coumadin (Vitamin K Antagonists) Lortab (Acetaminophen) Depends on Dose C Lidocaine (Topical) (Local Anesthetics) Lortab (Methemoglobinemia Associated Agents) B Acetaminophen Lortab (Opioid Analgesics) B Cardizem CD (Calcium Channel Blockers) Motrin (CAN) (Nonsteroidal Anti-Infla mmatory Agents) A Coumadin (Vitamin K Antagonists) Lipitor (AtorvaSTATin) Pneumococcal Vaccine HX Pneumo Vac ([id number]): Yes (2010) HX Pneumo Vac (Pneumovax): Yes HARLEY CHURCHILL Sep 04, 2018 11:27
--- NOTE | 2018-09-04 11:50 | NUR ---
on unit visiting, extremely confused. Neighbor who has been checking on her while the resident has been hospitalized. He reported that we needed to be sure she eats. Resident reports she wears oxygen during the day and she does not have it on. Walked to the parking garage where she is planning to drive home. She repeatedly was stating she couldn't find her way around the hospital. Encouraged to park in front of the hospital where she could come into the main atrium and get assistance. Perseverating about parking in the garage and being unable to find her way. Upon return to the unit, I discussed my immediate concerns with the resident. He states he is aware, that she is safe to drive, and he just needs to get home. Reported his daughter Mar had contacted [facility]. Contacted daughter, Mar who reports she has been attempting to get some help, but her mother is refusing to let anyone in. She reports that her dad has stated the doctor has told them she is safe to drive, daughter lives in [place] and is leaving town until next Sunday. She expressed her frustration with getting her parents to accept any help or to consider moving to records management assistant living. She will be available via cell phone while she is out of town. She will contact the neighbors to ensure she is being checked on. Informed we would be contacting social work with the ongoing concerns but since her mom isn't a resident, we wouldn't have much influence. She was appreciative of call "Maybe this will be an eye automobile travel club counselor for both of them". Charly DELEON notified of situation.
--- NOTE | 2018-09-04 12:15 | NUR ---
Physical Therapy Impression PT treatment completed following ECF eval. Pt tolerated transfer from bed to chair with use of FWW. Pt demos decreased weight bearing on R) LE due to pain. Physical Therapy Goals 1. Pt to be modified indep with all bed mobility and supine to/from sit transfers 2. Pt to be modified indep with sit to/from stand transfers 3. Pt to ambulate x 150' with least restrictive device and pain in manageable range 4. Pt to alena up/down 4 steps with rail and SBA/modified indep Patient's Goals
[2018-09-04] MEDS: WARFARIN SOD 5 MG TAB PO SCH ×2 (13:00→13:16)
--- NOTE | 2018-09-04 13:59 | OT ECF NOTE ---
Type of Note: Initial Note Primary Medical Diagnosis: Generalized weakness s/p pelvis fx sustained in fall at home. *WBAT* Occupational Therapy Evaluation Date: 09/04/18 SUBJECTIVE: Prior Hospitalization: [facility] 09/01/18-09/04/18 Prior Level of Function: Mod (I) for ADLs and most IADLs. Pt ambulated with cane prior and completed grocery shopping. Pt cares for spouse who has dementia. Pt reports spouse does all of the driving. Prior Living Status: Single level house Community Services: No known needs Home Accessibility: Stairs with rails All needs on one level Walk-in shower Equipment Owned: Front wheeled walker Cane Toilet riser Tub/shower chair Medical Complications/Past Medical History: Afib, Enlarged prostate, FRANDY, HTN. Please refer to EMR for further details. Psychosocial Support: Daughter in [place], [place]. Pain Scale (0-10): Reporting increased pain with mobility. Positioning and emotional support offered. OBJECTIVE: Strength: MMT: Right Left Shoulder Flexion WFL WFL Elbow Flexion WFL WFL Wrist Extension WFL WFL On Air Host WFL WFL (5= normal, 4= good, 3= fair, 2= poor, 1= trace) ROM: Both upper extremities, WFL Sensation: No paraesthesia reported Functional Transfer: Assistive Device: Front wheeled walker, Gait belt Transfer Ability: Minimum assistance, 1-person assist ADL: Upper body dressing: Assistive device: Upper body dressing ability: N/T Lower body dressing: Assistive device: Lower body dressing ability: N/T Toileting: Assistive device: Toileting ability: N/T Grooming/hygiene: Assistive device: Grooming ability: N/T Bathing: Assistive device: Bathing ability: N/T Standardized Assessment: Yasmine Index of Activities of Daily Livin/20 upon initial evaluation (09/04/18). ASSESSMENT: "Brayden" presents to [facility] with decreased mobility and (I) for ADLs/IADLs s/p fall at home and subsequent pelvis fx. He will benefit from skilled OT services to improve activity tolerance and optimize (I) with ADLs prior to discharge home with spouse. Problem List/Current Limitations: Pain Decreased activity tolerance Decreased strength Generalized weakness Short Term Goals: 1) Pt will be SBA toilet task. 2) Pt will be SBA grooming/hygiene. 3) Pt will be Independent UB/LB dressing. 4) Pt will be SBA shower task. 5) Pt Yasmine Index of ADLs will improve by 2 points. Conveyor Feeder Goals: Return home with increased services Patient Goals: Return home to care for spouse Rehabilitation Prognosis: Good Barriers to Discharge: Pain PLAN: The patient will benefit from skilled occupational therapy services 5 times per week for 2 weeks including: Ther ex ADL training Safety training Ther act IADL training Home assessment Transfer training Adaptive equip training Bed mobility Energy conservation Thank you for this referral. If you have any questions, concerns, or comments about this report or plan, please contact me at . Delmis Alejo MS, OTR/L Occupational Therapist TAMMY
--- NOTE | 2018-09-04 14:37 | NUR ---
Daughter Mar called, stating she had spoken with her mom who is home and seems "lucid" now. Resident very anxious about his , call transferred to room so resident could speak to daughter who assured him that Juanis was okay.
[2018-09-04 16:15] VITALS: BP 127/73
[2018-09-04] MEDS: ACETAMINOPHEN 325 MG TAB PO PRN (20:18)
[2018-09-04] MEDS: ATORVASTATIN 10 MG TAB PO SCH (20:18)
[2018-09-04] MEDS: PATCH REMOVAL 1 EA TP SCH (20:49)
[2018-09-05 05:57] LABS: INR 2.92
[2018-09-05 08:00] VITALS: BP 131/82
[2018-09-05] MEDS: ACETAMINOPHEN 325 MG TAB PO PRN (08:38)
[2018-09-05] MEDS: DILTIAZEM CD 180 MG CAPCR PO SCH (08:38)
[2018-09-05] MEDS: LIDOCAINE 5% PATCH TP SCH (08:38)
--- NOTE | 2018-09-05 09:15 | Medical Nutrition Therapy ---
Nutrition Anthropometrics Height (Inches): 64.00 Height (Calculated Centimeters: 162.162697 Weight (Pounds): 127 Weight (Calculated Kilograms): 57.663 BMI: 21.8 [place] Nutrition Score: Probably Inadequate [place] Nutrition Risk Score: 16 Dietary Referral Nutrition Risk Factors: Nutrition Risk Comment: Nutritional Diagnosis Nutritional Risk Acuity 3: Fair Appetite, Fx & > 80 yrs Past Medical History: CAD, Htn Nutritional Acuity: 3-Mild Energy Requirement: 1825 (M- StJ x 1.2 SF) Protein Requirement: 75 (1.3 gm/kg) Fluid Requirement: 1450 (25ml/kg) Diet Type: Diet as Tolerated SOFIA/REG Nutrition Intervention: Cont diet as ordered, Encourage intake, HS snack, Between meal supplement Additional Diet Restrictions: OFFER NUTR SUPPLMENT Nutrition Monitoring & Eval Nutrition Goals: Eat 75-100% Meal RD Patient Assessment Time: [address] Assessment Type: RD Assessment Patient Nutrition Acuity: 3-Mild Follow Up Date: Sep 10, 2018 Nutritional Comment: 09/05: Pt admitted s/p fx of sacrum. Pt wt 116# on standing scale on med unit 09/01/18. Current wt 127# using bedscale. Wt change possibly r/t difference in scale or fluids. Will cont to monitor wt. Pt on regular diet and eating 50-75%. Will offer nutr supplment to increase kcal and protein. Cont to monitor and encourage intake. DAVID LAI Sep 05, 2018 09:15
[2018-09-05] MEDS ORDERED: WARF-1 PO (09:30)
--- NOTE | 2018-09-05 10:08 | NUR ---
Physical Therapy Impression Pt demonstrates good sequencing prior to transfers, requiring verbal cues to push up from surface for STS. Pt required modA in order to rise to stand and shift COG over BRANNON. Pt requires increased time to regain balance once standing. Pt tolerated 2 ambulation bouts of 5' and 8' with use of RW with Matilda provided d/t buckling of LEs during weightbearing. Close chair follow provided for patient safety. Pt is demonstrating good tolerance to progression of functional mobility, continue with POC. Physical Therapy Goals Patient's Goals
--- NOTE | 2018-09-05 11:32 | NUR ---
Occupational Therapy Impression Pt requiring encouragement to increase ambulation distance. Mod Ax1 sit<>stands x3. Min A ambulation x8ft, x10ft with RW and close chair follow. Mod A sit to supine. Pt reporting pain at 1/10 in sitting, 9-10/10 with mobility. Ice applied upon return to bed. Pt verbalizing relief. Occupational Therapy Goals 1) Pt will be SBA toilet task. 2) Pt will be SBA grooming/hygiene. 3) Pt will be Independent UB/LB dressing. 4) Pt will be SBA shower task. 5) Pt Yasmine Index of ADLs will improve by 2 points. Patient's Goal
[2018-09-05] MEDS: WARFARIN SOD 2.5 MG TAB PO SCH (13:33)
[2018-09-05] MEDS ORDERED: BISACODYL 10 MG SUPP PR PRN (13:45)
--- NOTE | 2018-09-05 14:06 | ECF H&P BLANK ---
[facility] H&P UPDATE History of Present Illness Chief Complaint Hip pain History of Present Illness 87M with an increased number of falls over the last 1-2 months secondary to his unsteadiness. Sunday he fell onto a carpeted surface, onto his right natalya e,intermittent right hip pain since. Prior to presentation increased in intensity, patient is having a very difficult time finding a comfortable position to sit in. Pain on ambulation which is making him a max assist with ambulation. The patient states that he did forget to take his diltiazem for his known atrial fibrillation and is in afib with RVR on arrival. He is being admitted for pain control, monitoring of heart rate, evaluation by PT/OT. 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 (3) Obstructive sleep apnea Status: Chronic (4) Essential hypertension Status: Chronic Home Meds Active Scripts Ketoconazole (KETOCONAZOLE) 120 Ml Shampoo, 1 [place] TP DAILY for 30 Days, #120 TUBE 1 Refill Prov:TRAN ARTEAGA [facility] 05/16/18 Hydrocortisone 2.5 % 30 GM CREAM (Hydrocortisone 2.5 % 30 GM CREAM) 2.5 % Cream.appl, 1 LIN[place]N TP BID for 30 Days, #1 TUBE 1 Refill Prov:TRAN ARTEAGA NPC 05/16/18 Clobetasol Propionate 0.05% Solution (CLOBETASOL PROPIONATE 0.05% SOLUTION) 50 Ml Solution, 1 [place]N TP BID for 30 Days, #1 BOT 2 Refills Prov:TRAN ARTEAGA NPC 02/14/18 Triamcinolone Acetonide 0.1% Cr 15 Gm Tube (TRIAMCINOLONE ACETONIDE 0.1% CREAM) 15 Gm Cream..g., 1 [place]N TP BID, #60 GM 3 Refills Prov:VICKI GILLIAM PHARMD 01/07/18 Lactose-Free Food/Fiber (JEVITY 1.5 DAVIS LIQUID) 1,000 Ml Liquid, 1000 ML PO QDAY, #30 BOTTLE 11 Refills Prov:VICKI GILLIAM PHARMD 03/06/16 Reported Medications Warfarin Sodium (COUMADIN) 5 Mg Tablet, 5 MG PO SUNDAY, SUNDAY, Sunday09/01/18 Warfarin Sodium (COUMADIN) 2.5 Mg Tablet, 2.5 MG PO sunday, sunday, sunday,Sunday09/01/18 Diltiazem Hcl (DILTIAZEM 24HR ER) 360 Mg Cap.er.24h, 1 CAP PO QDAY, CAP 04/21/15 Atorvastatin Calcium (ATORVASTATIN CALCIUM) 40 Mg Tablet, 0.5 TAB PO QDAY, TAB 02/22/15 Discontinued Reported Medications Tramadol Hcl (Ultram) 50 Mg Tab, 1 TAB PO QID PRN for pain, 0 Refills 01/06/10 Discontinued Scripts Warfarin Sodium (WARFARIN SODIUM) 5 Mg Tablet, 5 MG PO DIRECTED, #90 TAB 3 Refills Prov:DEMI GUZMAN MD 05/29/17 Meclizine Hcl (MECLIZINE HCL) 25 Mg Tablet, 25 MG PO Q6-8H PRN for DIZZINESS, #15 MG Prov:BITA CHAVEZ DO 05/23/17 Allergies: Coded Allergies: Penicillins (Verified Allergy, Intermediate, RASH, 09/01/18) Patient History: Abdominal aortic aneurysm MOTHER, , Age:65 FH: abdominal aortic aneurysm FH: alcohol abuse FATHER, , Age:77 FH: cancer FATHER, , Age:77 Hx Smoking: Yes Smoking Status: Former Smoker Hx Alcohol Use: Yes Hx Substance Use Disorder: No Review of Systems Neurological: No Confusion, No Weakness Cardiovascular: No Chest Pain Respiratory: No Shortness of Breath Gastrointestinal: No Nausea, No Vomiting Musculoskeletal: Pain Exam Vital Signs Vital Signs Date Time Temp Pulse Resp B/P (MAP) Pulse Ox O2 Delivery O2 Flow Rate FiO2 09/01/18 23:54 114 09/01/18 23:00 12 122/89 (100) 82 09/01/18 20:05 2.0 09/01/18 19:31 98.3 Room Air General Appearance: Alert, Awake, No Acute Distress, Afebrile Neuro: No Gross deficits ENT: Normal Cardiovascular: Other (Irregularly irregular) Respiratory: No Respiratory Distress GI: Abd Soft and Non-Tender Extremities: Soft and Non Tender, Warm, Pulses, Perfused; No Edema Integumentary: Skin Intact without Lesion / Mass, Other (venous stasis changes to anterior tibial area) Medical Decision Making Data Points Result Diagram: 09/01/18193509/01/181935 Assessment and Plan Problems: (1) Atrial fibrillation with RVR Assessment & Plan: Given IV diltiazem loading dose and PO dose in ER. Will monitor on telemetry and continue home dose. (2) Fracture of sacrum without disruption of pelvic ring Status: Acute Assessment & Plan: Will provide pain control and have PT/OT evaluate patient. May need further rehab given frequent falls. (3) Alkaline phosphatase elevation Assessment & Plan: Unclear etiology, GGT pending to evaluate for biliary vs bone source. (4) Atrial fibrillation Status: Chronic Assessment & Plan: On chronic diltiazem, continued. Venous Thromboembolism Antithrombotics Is Pt On Any Antithrombotics?: Yes Exam Sepsis Risk: No Definite Risk TAMI MCKEON DO Sep 01, 2018 22:56 <Electronically signed by TAMI WELCH DO> D/ [id number] KARINE/NAYELY CC: The above acute care issues are resolving and/or stable. Patient requires fci and/or skilled rehabilitation and is ready for admission to [facility]. Any change in condition is described below. HARLEY PERKINS MD Sep 05, 2018 14:06
--- NOTE | 2018-09-05 15:13 | Hospitalist Progress Note ---
Subjective Progress Notes Subjective The patient states he has not had a BM. Physical Exam Vital Signs Date Time Temp Pulse Resp B/P (MAP) Pulse Ox O2 Delivery O2 Flow Rate FiO2 09/05/18 10:00 95 Nasal Cannula 2.0 09/05/18 08:00 98.1 97 18 131/82 (98) Intake and Output 09/05/18 06:59 Intake Total 360 ml Balance 360 ml Intake Oral 360 ml General Appearance: Alert, Awake, No Acute Distress Respiratory: Other (Bibasilar fine crackles which clear somewhat R>L.) GI: Soft and Non-Tender Extremities: Warm, Perfused, Other (Chronic venous stasis changes. No edema.) Psych: Appropriate Mood & Affect Assessment and Plan Problems: (1) Fracture of sacrum without disruption of pelvic ring Status: Acute Assessment & Plan: He presented with a bilateral sacrum wing fracture. He was initially admitted to the medical floor. He was provided with pain control and PT/OT evaluated patient. It was recommended he have subacute short term rehab. He was transferred to [facility] for ongoing rehabilitation. He is on Tylenol and Lortab. He has had some mild confusion. Will try to minimize the Lortab if possible. (2) Atrial fibrillation Status: Chronic Assessment & Plan: The patient has chronic a fib. He presented to the ER in a fib with RVR. He was given IV diltiazem loading dose and then resumed his home dose. His rate is now under control. (3) Alkaline phosphatase elevation Status: Chronic Assessment & Plan: He presented with elevated alkaline phosphatase. Unclear etiology, GGT slgithly elevated at 141. GGT was done to evaluate for biliary vs. bone source. He does drink a glass of wine daily for many years, and does use Tylenol for pain frequently. He appears to have elevation noted from 2017. We will continue to trend the labs on ECF. Time Spent on Plan of Care: < 30 min HARLEY PERKINS MD Sep 05, 2018 15:13
[2018-09-05 16:20] VITALS: BP 125/79
[2018-09-05] MEDS: DOCUSATE SODIUM 100 MG CAP PO SCH (20:32)
[2018-09-05] MEDS: ATORVASTATIN 10 MG TAB PO SCH (20:32)
[2018-09-05] MEDS: PATCH REMOVAL 1 EA TP SCH (20:33)
[2018-09-05] MEDS: ACETAMINOPHEN 500 MG TAB PO PRN (20:33)
[2018-09-06 06:32] LABS: INR 2.46
[2018-09-06 08:00] VITALS: BP 128/87
[2018-09-06] MEDS: ACETAMINOPHEN 500 MG TAB PO PRN ×2 (09:25→20:19)
[2018-09-06] MEDS: LIDOCAINE 5% PATCH TP SCH (09:25)
[2018-09-06] MEDS: POLYETHYLENE GLYCOL 17 GM PKT PO SCH (09:25)
[2018-09-06] MEDS: DOCUSATE SODIUM 100 MG CAP PO SCH ×2 (09:25→20:19)
[2018-09-06] MEDS: DILTIAZEM CD 180 MG CAPCR PO SCH (09:26)
--- NOTE | 2018-09-06 10:43 | NUR ---
Occupational Therapy Impression Pt requesting to return to bed upon OT arrival. With significant encouragement, agreeable to engage in functional mobility and change soiled brief. CGA ambulation 2x15ft with RW. Close chair follow. Max A toileting. Refusing further ADLs (dressing). Mod A sit to supine. Educated re: POC. Pt verbalized understanding. Occupational Therapy Goals 1) Pt will be SBA toilet task. 2) Pt will be SBA grooming/hygiene. 3) Pt will be Independent UB/LB dressing. 4) Pt will be SBA shower task. 5) Pt Yasmine Index of ADLs will improve by 2 points. Patient's Goal
--- NOTE | 2018-09-06 13:01 | NUR ---
Physical Therapy Impression Pt tolerated increased ambulation this date. No reports of pain, though was not prompted by this therapist either. Gait x 35', 40' with seated rest break between bouts. Mod encouragement to increase distance. Pt on 1.0 L O2 with activity, SpO2 95%. Notified nursing. Cont. with POC. Physical Therapy Goals Patient's Goals
[2018-09-06] MEDS: WARFARIN SOD 5 MG TAB PO SCH (13:29)
[2018-09-06 15:50] VITALS: BP 122/81
[2018-09-06] MEDS: PATCH REMOVAL 1 EA TP SCH (20:19)
[2018-09-06] MEDS: ATORVASTATIN 10 MG TAB PO SCH (20:19)
[2018-09-07 06:17] LABS: INR 2.23
[2018-09-07 07:59] VITALS: BP 144/93
[2018-09-07] MEDS: POLYETHYLENE GLYCOL 17 GM PKT PO SCH (09:05)
[2018-09-07] MEDS: DOCUSATE SODIUM 100 MG CAP PO SCH ×2 (09:06→20:49)
[2018-09-07] MEDS: DILTIAZEM CD 180 MG CAPCR PO SCH (09:06)
[2018-09-07] MEDS: LIDOCAINE 5% PATCH TP SCH (09:06)
[2018-09-07] MEDS: ACETAMINOPHEN 500 MG TAB PO PRN ×2 (09:06→20:50)
[2018-09-07] MEDS: WARFARIN SOD 2.5 MG TAB PO SCH (13:24)
[2018-09-07 15:00] VITALS: BP 106/63
[2018-09-07] MEDS: ATORVASTATIN 10 MG TAB PO SCH (20:49)
[2018-09-07] MEDS: PATCH REMOVAL 1 EA TP SCH (21:00)
[2018-09-08 06:45] LABS: INR 2.23
[2018-09-08 08:14] VITALS: BP 141/87
[2018-09-08] MEDS: DOCUSATE SODIUM 100 MG CAP PO SCH ×2 (09:00→21:00)
[2018-09-08] MEDS: POLYETHYLENE GLYCOL 17 GM PKT PO SCH (09:00)
[2018-09-08] MEDS: LIDOCAINE 5% PATCH TP SCH (09:23)
[2018-09-08] MEDS: DILTIAZEM CD 180 MG CAPCR PO SCH (09:24)
[2018-09-08] MEDS: WARFARIN SOD 2.5 MG TAB PO SCH (13:08)
--- NOTE | 2018-09-08 13:30 | NUR ---
Pt's oxygen This morning pt appeared to be panting and out of breath, but O2 sats 98% on O2 at 2LPM per NC. Encouraged to breathe through his nose if he feels that he cannot get enough oxygen, but he refused, said, "it's habit, it's how I always breathe," and denied feeling distressed. He refused offer of O2 mask.
[2018-09-08 15:53] VITALS: BP 139/80
[2018-09-08] MEDS: PATCH REMOVAL 1 EA TP SCH (21:00)
[2018-09-08] MEDS: ATORVASTATIN 10 MG TAB PO SCH (21:09)
[2018-09-08] MEDS: ACETAMINOPHEN 500 MG TAB PO PRN (21:10)
[2018-09-09 05:43] LABS: INR 2.31
[2018-09-09 07:45] VITALS: BP 120/76
[2018-09-09] MEDS: POLYETHYLENE GLYCOL 17 GM PKT PO SCH (09:00)
[2018-09-09] MEDS: DOCUSATE SODIUM 100 MG CAP PO SCH ×2 (09:00→20:27)
[2018-09-09] MEDS: LIDOCAINE 5% PATCH TP SCH (09:04)
[2018-09-09] MEDS: DILTIAZEM CD 180 MG CAPCR PO SCH (09:05)
--- NOTE | 2018-09-09 12:58 | NUR ---
Occupational Therapy Impression CGA ambulation x250ft with RW. No rest break and close w/c follow. Pt with no loss of balance, fair tolerance. Set-up UB dressing. Min A LB dressing with education for LB AE. Pt declined further ADLs. Improved mobility this date. Occupational Therapy Goals 1) Pt will be SBA toilet task. 2) Pt will be SBA grooming/hygiene. 3) Pt will be Independent UB/LB dressing. 4) Pt will be SBA shower task. 5) Pt Yasmine Index of ADLs will improve by 2 points. Patient's Goal
[2018-09-09] MEDS: WARFARIN SOD 5 MG TAB PO SCH (13:35)
--- NOTE | 2018-09-09 13:44 | NUR ---
Physical Therapy Impression Pt tolerated increased mobility this date and verbalized understanding the importance of increasing his mobility throughout the day. CGA sit <> stands from elizabeth chair and W/C with one cue for hand placement prior to sitting, good carry over for technique after initial cue. Stairs with B handrails and CGA. Pt will need to complete stairs with a single, R ascending handrail to simulate entry into pt's home prior to D/C. Pt's spouse present throughout. Pt on 1.0 L O2 with activity, SpO2 WNL. Cont. with POC. Physical Therapy Goals 1. Pt to be modified indep with all bed mobility and supine to/from sit transfers 2. Pt to be modified indep with sit to/from stand transfers 3. Pt to ambulate x 150' with least restrictive device and pain in manageable range 4. Pt to alena up/down 4 steps with rail and SBA/modified indep Patient's Goals
--- NOTE | 2018-09-09 15:53 | Medical Nutrition Therapy ---
Nutrition Anthropometrics Height (Inches): 64.00 Height (Calculated Centimeters: 162.182566 Weight (Pounds): 127 Weight (Calculated Kilograms): 57.663 BMI: 21.8 [place] Nutrition Score: Probably Inadequate [place] Nutrition Risk Score: 16 Dietary Referral Nutrition Risk Factors: Nutrition Risk Comment: Nutritional Diagnosis Nutritional Risk Acuity 3: Fair Appetite, Fx & > 80 yrs Nutritional Risk Acuity 4: Good Appetite Past Medical History: CAD, Htn Nutritional Acuity: 3-Mild Energy Requirement: 1825 (M- StJ x 1.2 SF) Protein Requirement: 75 (1.3 gm/kg) Fluid Requirement: 1450 (25ml/kg) Diet Type: Diet as Tolerated SOFIA/REG Nutrition Intervention: Cont diet as ordered, Encourage intake, HS snack, Between meal supplement Food Likes: pancakes! Additional Diet Restrictions: OFFER NUTR SUPPLMENT Nutrition Monitoring & Eval Nutrition Goals: Eat 75-100% Meal Nutrition Follow-Up: Good Intake, Fair Intake RD Patient Assessment Time: [address] Assessment Type: RD Re-Assessment Patient Nutrition Acuity: 3-Mild Follow Up Date: Sep 17, 2018 Nutritional Comment: 09/05: Pt admitted s/p fx of sacrum. Pt wt 116# on standing scale on med unit 09/01/18. Current wt 127# using bedscale. Wt change possibly r/t difference in scale or fluids. Will cont to monitor wt. Pt on regular diet and eating 50-75%. Will offer nutr supplment to increase kcal and protein. Cont to monitor and encourage intake. BK 09/09 Pt eating 75-100% of small to regular portions. No new wt or labs. Will cont to monitor and encourage intake. DAVID LAI Sep 09, 2018 15:53
[2018-09-09 17:00] VITALS: BP 118/76
[2018-09-09] MEDS: PATCH REMOVAL 1 EA TP SCH (20:22)
[2018-09-09] MEDS: ATORVASTATIN 10 MG TAB PO SCH (20:26)
[2018-09-09] MEDS: ACETAMINOPHEN 500 MG TAB PO PRN (20:26)
[2018-09-10 06:33] LABS: PLATELET COUNT, AUTOMATED 124 K/uL (150-450)
[2018-09-10 06:47] LABS: INR 2.49
[2018-09-10 07:37] VITALS: BP 143/91
[2018-09-10] MEDS: DOCUSATE SODIUM 100 MG CAP PO SCH ×2 (09:00→20:22)
[2018-09-10] MEDS: POLYETHYLENE GLYCOL 17 GM PKT PO SCH (09:10)
[2018-09-10] MEDS: DILTIAZEM CD 180 MG CAPCR PO SCH (09:10)
[2018-09-10] MEDS: ACETAMINOPHEN 500 MG TAB PO PRN ×2 (09:10→17:32)
[2018-09-10] MEDS: LIDOCAINE 5% PATCH TP SCH (09:10)
--- NOTE | 2018-09-10 11:30 | NUR ---
Physical Therapy Impression Pt is making good progress towards PT goals. He requires CGA for STS transfers. Pt did require maxA for pericare and management of pants after toileting. CGA for ambulation 2x180' with use of RW, SPO2 WNL on room air throughout session. Emphasis of PT session on stair negotiation with unilateral rail. Pt completed 2x4 steps with close CGA. Pt fatigued but with overall improved tolerance demonstrated. Physical Therapy Goals 1. Pt to be modified indep with all bed mobility and supine to/from sit transfers 2. Pt to be modified indep with sit to/from stand transfers 3. Pt to ambulate x 150' with least restrictive device and pain in manageable range 4. Pt to alena up/down 4 steps with rail and SBA/modified indep Patient's Goals
--- NOTE | 2018-09-10 11:30 | NUR ---
Occupational Therapy Impression CGA ambulation x90ft with RW. Set-up shower seated. Mod A LB dressing with farmer diversified crops. Min A UB dressing. Min A grooming seated. Completed MiniMental, pt scoring 25/30 indicating no cognitive impairment. Pt demonstrates decreased initiation for ADLs. Will continue to benefit from skilled OT services to optimize (I) with ADLs. No report of pain throughout tx. Occupational Therapy Goals 1) Pt will be SBA toilet task. 2) Pt will be SBA grooming/hygiene. 3) Pt will be Independent UB/LB dressing. 4) Pt will be SBA shower task. 5) Pt Yasmine Index of ADLs will improve by 2 points. Patient's Goal
--- NOTE | 2018-09-10 12:27 | NUR ---
5-day MDS completed with pt. C: 11, D: 04, E: no concerns, Q: pt voices plan to return to community, may be interested in [facility], but undecided at present. Will continue to follow for DC plans.
[2018-09-10] MEDS: WARFARIN SOD 2.5 MG TAB PO SCH (13:31)
[2018-09-10 15:40] VITALS: BP 103/69
[2018-09-10] MEDS: PATCH REMOVAL 1 EA TP SCH (20:21)
[2018-09-10] MEDS: ATORVASTATIN 10 MG TAB PO SCH (20:22)
[2018-09-10] MEDS: IBUPROFEN 200 MG TAB PO PRN (20:22)
[2018-09-11 06:59] LABS: INR 2.56
[2018-09-11] MEDS: LIDOCAINE 5% PATCH TP SCH (08:56)
[2018-09-11] MEDS: DILTIAZEM CD 180 MG CAPCR PO SCH (08:57)
[2018-09-11] MEDS: DOCUSATE SODIUM 100 MG CAP PO SCH ×2 (08:57→20:31)
[2018-09-11] MEDS: ACETAMINOPHEN 500 MG TAB PO PRN ×2 (08:57→19:05)
[2018-09-11 09:00] VITALS: BP 118/74
[2018-09-11] MEDS: POLYETHYLENE GLYCOL 17 GM PKT PO SCH (09:00)
--- NOTE | 2018-09-11 10:28 | NUR ---
Occupational Therapy Impression CGA ambulation x300ft with RW. No reported pain. Set-up LB dressing. (I) threading LB clothing and donning tie shoes. No use of LB AE. SBA pulling clothing over hips. (I) grooming seated. SpO2 WNL on room air throughout tx. Pt demonstrating improved (I) towards ADLs this tx. Occupational Therapy Goals 1) Pt will be SBA toilet task. 2) Pt will be SBA grooming/hygiene. 3) Pt will be Independent UB/LB dressing. 4) Pt will be SBA shower task. 5) Pt Yasmine Index of ADLs will improve by 2 points. Patient's Goal
--- NOTE | 2018-09-11 12:15 | NUR ---
Physical Therapy Impression Pt able to perform sit<>stand transfer with RW and SBA from chair, commode, and mat table. Pt requires assistance for LB dressing and hygiene while using the bathroom. Pt able to tolerate ambulation x 200' with RW and 1 seated rest break. Pt ascended/descended stairs with B rails and CGA. Pt progressing well and will continue to benefit from skilled PT for functional mobility and safety training. Physical Therapy Goals 1. Pt to be modified indep with all bed mobility and supine to/from sit transfers 2. Pt to be modified indep with sit to/from stand transfers 3. Pt to ambulate x 150' with least restrictive device and pain in manageable range 4. Pt to alena up/down 4 steps with rail and SBA/modified indep Patient's Goals
[2018-09-11] MEDS: WARFARIN SOD 5 MG TAB PO SCH (13:11)
--- NOTE | 2018-09-11 15:23 | Hospitalist Progress Note ---
Subjective Progress Notes Subjective No new complaints. Physical Exam Vital Signs Date Time Temp Pulse Resp B/P (MAP) Pulse Ox O2 Delivery O2 Flow Rate FiO2 09/11/18 09:00 96 Room Air 09/11/18 09:00 96.0 88 14 118/74 (89) 09/10/18 08:00 1.0 Intake and Output 09/11/18 07:00 Intake Total 720 ml Balance 720 ml Intake Oral 720 ml # Voids 3 # Bowel Movements 2 General Appearance: Alert, Awake, No Acute Distress Neuro: No Gross deficits Cardiovascular: Regular Rate and Rhythm (With 2/4 CURT heard best at apex.) GI: Soft and Non-Tender Extremities: Warm, Perfused Psych: Appropriate Mood & Affect Result Diagram: 09/10/1861109/10/18611 Assessment and Plan Problems: (1) Fracture of sacrum without disruption of pelvic ring Status: Acute Assessment & Plan: He presented with a bilateral sacrum wing fracture. He was initially admitted to the medical floor. He was provided with pain control and PT/OT evaluated patient. It was recommended he have subacute short term rehab. He was transferred to [facility] for ongoing rehabilitation. He is on Tylenol and Lortab. He has had some mild confusion. Will try to minimize the Lortab if possible. He has improved some but progress is slow. Continue rehab. (2) Atrial fibrillation Status: Chronic Assessment & Plan: The patient has chronic a fib. He presented to the ER in a fib with RVR. He was given IV diltiazem loading dose and then resumed his home dose. His rate is now under control. His INR has been stable. Will change labs to q 72 hours for his INR. (3) Alkaline phosphatase elevation Status: Chronic Assessment & Plan: He presented with elevated alkaline phosphatase. Unclear etiology, GGT slgithly elevated at 141. GGT was done to evaluate for biliary vs. bone source. He does drink a glass of wine daily for many years, and does use Tylenol for pain frequently. He appears to have elevation noted from 2017. He continues to have mild elevation on scheduled Tylenol. Will continue periodic monitoring. Time Spent on Plan of Care: < 30 min HARLEY PERKINS MD Sep 11, 2018 15:23
[2018-09-11 15:50] VITALS: BP 117/78
[2018-09-11] MEDS: ATORVASTATIN 10 MG TAB PO SCH (20:31)
[2018-09-11] MEDS: PATCH REMOVAL 1 EA TP SCH (20:32)
[2018-09-12] MEDS: ACETAMINOPHEN 500 MG TAB PO PRN ×2 (04:11→20:07)
[2018-09-12] MEDS: POLYETHYLENE GLYCOL 17 GM PKT PO SCH (09:00)
[2018-09-12 09:15] VITALS: BP 124/71
[2018-09-12] MEDS: LIDOCAINE 5% PATCH TP SCH (09:17)
[2018-09-12] MEDS: DOCUSATE SODIUM 100 MG CAP PO SCH ×2 (09:17→20:07)
[2018-09-12] MEDS: DILTIAZEM CD 180 MG CAPCR PO SCH (09:17)
--- NOTE | 2018-09-12 09:36 | NUR ---
Occupational Therapy Impression Incorporating turns and dynamic balance reaching for items at waist height during ambulation in order to improve balance for engagement in ADLs. Pt with no loss of balance crossing midline and reaching with R UE while L UE provided support through RW. SpO2 WNL throughout tx. Min A LB dressing. Set-up UB dressing. Oral care/grooming seated. Min A toileting. Pt requiring significant encouragement and strategies to (I)ly attempt to complete toileting. Continue POC. Occupational Therapy Goals 1) Pt will be SBA toilet task. 2) Pt will be SBA grooming/hygiene. 3) Pt will be Independent UB/LB dressing. 4) Pt will be SBA shower task. 5) Pt Yasmine Index of ADLs will improve by 2 points. Patient's Goal
--- NOTE | 2018-09-12 12:55 | NUR ---
Daughter Marisol called asking for an update. States she is aware of how unsafe it is, and has been attempting to get help in for her parents, but they refuse anyone coming in and providing that help. "They think they are doing just fine". Discussed home health options and we would be recommending this at discharge. Listened empathetically to her frustrations being far away and unable to help or her parents accepting any help.
[2018-09-12] MEDS: WARFARIN SOD 2.5 MG TAB PO SCH (13:14)
--- NOTE | 2018-09-12 13:40 | NUR ---
Physical Therapy Impression Pt demonstrating consistent sequencing with STS transfers, PT provided SBA. Ambulation x150' and 180' with RW and SBA. PT instruction for dynamic and static balance tasks in // bars to include fwd, sideways and bwd walking with bilateral hand support. Pt with poor tolerance to standing balance task without narrow BRANNON and no UE support. Physical Therapy Goals 1. Pt to be modified indep with all bed mobility and supine to/from sit transfers 2. Pt to be modified indep with sit to/from stand transfers 3. Pt to ambulate x 150' with least restrictive device and pain in manageable range 4. Pt to alena up/down 4 steps with rail and SBA/modified indep Patient's Goals
[2018-09-12 16:20] VITALS: BP 153/80
--- NOTE | 2018-09-12 16:56 | PT ECF NOTE ---
Type of Note: Initial Note Primary Medical Diagnosis: Generalized weakness; s/p pelvis fx (B) sacral wings) sustained in fall at home. *WBAT* Physical Therapy Evaluation Date: 09/04/18 SUBJECTIVE: Prior Hospitalization: [facility] 09/01/18-09/04/18 Prior Level of Function: Mod (I) for ADLs and most IADLs. Pt ambulated with cane prior and completed grocery shopping. Pt cares for spouse who has dementia. Pt reports spouse does all of the driving. Prior Living Status: Single level house Community Services: No known needs Home Accessibility: Stairs with rails; All needs on one level; Walk-in shower Equipment Owned: Front wheeled walker; Cane; Toilet riser; Tub/shower chair Medical Complications/Past Medical History: Afib, Enlarged prostate, FRANDY, HTN. Please refer to EMR for further details. Psychosocial Support: Daughter in [place]. Pain Scale (0-10): Reporting increased pain with mobility. Positioning and emotional support offered. OBJECTIVE: Strength: MMT not performed to B) LE's due to increased discomfort; functional mobility indicates 3/5 overall ROM: (please note any abnormalities) WFL with limitations primarily due to pain Sensation: (please note any abnormalities) Na paresthesias reported Other Neuro findings: n/a Bed Mobility: Not addressed at time of eval; Nursing report from Med/Surg indicates Min/CGA Assistive device: Bed rail Transfers: CGA Assistive Device: Front wheeled walker Gait: CGA Assistive device: Front wheeled walker Stairs: not yet tested Assistive device: Timed Up and Go (>12 seconds indicated increased risk for falls): Not yet able to complete 10 meter walk test (0.6m/second cannot function independently): Pt not yet able to ambulate greater distances Other Objective Measures: n/a ASSESSMENT: Pt fairly limited with movement due to pain currently. Prior level of function was indep with ADL's and assist from for some IADL's. Pt would benefit from further rehab to ensure safety with balance and ambulation during ADL's, including return to indep. Problem List/Current Limitations: Pain, Decreased WB, Decreased activity alena, Decreased balance Short Term Goals: 1. Pt to be modified indep with all bed mobility and supine to/from sit transfers 2. Pt to be modified indep with sit to/from stand transfers 3. Pt to ambulate x 150' with least restrictive device and pain in manageable range 4. Pt to alena up/down 4 steps with rail and SBA/modified indep Care Home Goals: Pt to be fully indep with all basic self care and ADL's with pain in manageable range. Patient Goals: Return home with Rehabilitation Prognosis: Good Barriers for Discharge: Pain, ability to bear weight and maintain balance with ADL's. PLAN: The patient will benefit from skilled physical therapy services 5 times per week for 2 weeks including: Therapeutic Exercise Therapeutic Activities, Transfer Training, Gait Training, Stair Training, Manual Therapy, ADL's, Safety Training, Pt/Caregiver Training Bed Mobility Thank you for this referral. If you have any questions, concerns, or comments about this report or plan, please contact me at . H. Pao Tilley, PT, MPT, OMS MTDD
[2018-09-12] MEDS: ATORVASTATIN 10 MG TAB PO SCH (20:07)
[2018-09-12] MEDS: PATCH REMOVAL 1 EA TP SCH (20:07)
[2018-09-13 08:00] VITALS: BP 118/73
[2018-09-13] MEDS: POLYETHYLENE GLYCOL 17 GM PKT PO SCH (09:22)
[2018-09-13] MEDS: LIDOCAINE 5% PATCH TP SCH (09:23)
[2018-09-13] MEDS: DOCUSATE SODIUM 100 MG CAP PO SCH ×2 (09:23→20:46)
[2018-09-13] MEDS: DILTIAZEM CD 180 MG CAPCR PO SCH (09:23)
[2018-09-13] MEDS: ACETAMINOPHEN 500 MG TAB PO PRN ×2 (09:26→19:20)
--- NOTE | 2018-09-13 11:02 | NUR ---
Occupational Therapy Impression CGA ambulation x70ft with RW. Min A ambulation in room retrieving clothing from closet, pt demonstrated decreased balance and safety awareness in tight spaces with functional use of bilateral hands. Independent bathing seated. Set-up UB/LB dressing. Pt progressing well towards OT goals. Continue POC. Occupational Therapy Goals 1) Pt will be SBA toilet task. 2) Pt will be SBA grooming/hygiene. 3) Pt will be Independent UB/LB dressing. 4) Pt will be SBA shower task. 5) Pt Yasmine Index of ADLs will improve by 2 points. Patient's Goal
[2018-09-13] MEDS: WARFARIN SOD 5 MG TAB PO SCH (12:31)
[2018-09-13 15:43] VITALS: BP 101/74
[2018-09-13] MEDS: ATORVASTATIN 10 MG TAB PO SCH (20:46)
[2018-09-13] MEDS: PATCH REMOVAL 1 EA TP SCH (21:00)
[2018-09-14] MEDS: ACETAMINOPHEN 500 MG TAB PO PRN ×2 (04:17→14:52)
[2018-09-14 06:43] LABS: INR 2.99
[2018-09-14 07:53] VITALS: BP 133/81
[2018-09-14] MEDS: POLYETHYLENE GLYCOL 17 GM PKT PO SCH (09:00)
[2018-09-14] MEDS: DOCUSATE SODIUM 100 MG CAP PO SCH ×2 (09:09→20:23)
[2018-09-14] MEDS: LIDOCAINE 5% PATCH TP SCH (09:09)
[2018-09-14] MEDS: DILTIAZEM CD 180 MG CAPCR PO SCH (09:09)
[2018-09-14] MEDS: WARFARIN SOD 2.5 MG TAB PO SCH (12:29)
[2018-09-14 15:15] VITALS: BP 123/80
[2018-09-14] MEDS: PATCH REMOVAL 1 EA TP SCH (20:22)
[2018-09-14] MEDS: ATORVASTATIN 10 MG TAB PO SCH (20:23)
[2018-09-14] MEDS: IBUPROFEN 200 MG TAB PO PRN (20:27)
[2018-09-15] MEDS: ACETAMINOPHEN 500 MG TAB PO PRN ×2 (03:17→14:39)
[2018-09-15 06:18] LABS: INR 3.26
[2018-09-15 07:30] VITALS: BP 137/77
[2018-09-15] MEDS: LIDOCAINE 5% PATCH TP SCH (08:21)
[2018-09-15] MEDS: DILTIAZEM CD 180 MG CAPCR PO SCH (08:22)
[2018-09-15] MEDS: DOCUSATE SODIUM 100 MG CAP PO SCH ×3 (08:23→21:00)
[2018-09-15] MEDS: POLYETHYLENE GLYCOL 17 GM PKT PO SCH ×2 (08:23→10:49)
--- NOTE | 2018-09-15 10:20 | NUR ---
Coumadin order This morning, after this RN spoke with Dr. Francis Leon about PT/INR, Dr. Leon called back and stated that he had changed Coumadin orders, but that he also wanted pt's Coumadin to be held today. This RN later went in and changed the 2.5mg order to start on 09/17/18, since Dr. Leon's order would have started it today, 09/15/18. I also notified the pharmacist, Princess, about Dr. Leon's order to hold today's dose of Coumadin, which is why I changed the order to start on Sunday.
[2018-09-15] MEDS ORDERED: WARFARIN SOD 2.5 MG TAB PO SCH (13:00)
[2018-09-15 17:30] VITALS: BP 128/82
[2018-09-15] MEDS: PATCH REMOVAL 1 EA TP SCH (20:31)
[2018-09-15] MEDS: IBUPROFEN 200 MG TAB PO PRN (21:00)
[2018-09-15] MEDS: ATORVASTATIN 10 MG TAB PO SCH (21:00)
[2018-09-16 07:50] VITALS: BP 134/81
[2018-09-16] MEDS: LIDOCAINE 5% PATCH TP SCH (08:30)
[2018-09-16] MEDS: DILTIAZEM CD 180 MG CAPCR PO SCH (09:00)
[2018-09-16] MEDS: DOCUSATE SODIUM 100 MG CAP PO SCH ×2 (09:00→21:08)
[2018-09-16] MEDS: POLYETHYLENE GLYCOL 17 GM PKT PO SCH (09:00)
--- NOTE | 2018-09-16 11:48 | NUR ---
Physical Therapy Impression Pt required encouragement to participate with therapy this date, desiring to put mobility off to complete other necessary tasks/phone calls. Pt requires a range of assist for sit <> stands from CGA to Mod A depending on technique used. Pt requires VC's for hand placement to improve quality of transfer. Pt is resistant to cues for improving his FWW mgmt with gait. Completed 4 sit <> stands from dining chair with arm rests to simulate dining set up at home, Min A to maintain stability of chair and FWW for safety. Cont. with POC. Physical Therapy Goals 1. Pt to be modified indep with all bed mobility and supine to/from sit transfers 2. Pt to be modified indep with sit to/from stand transfers 3. Pt to ambulate x 150' with least restrictive device and pain in manageable range 4. Pt to alena up/down 4 steps with rail and SBA/modified indep Patient's Goals
--- NOTE | 2018-09-16 12:37 | NUR ---
Occupational Therapy Impression CGA ambulation in room. Incorporating tight turns and dynamic balance reaching for items in closet. Pt fatigues quickly. CGA ambulation in hallway/unit over various thresholds and surfaces. Mod A sit<>stand from low, soft couch. Pt reports a lift chair at home. Pt declining further ADLs. Pt demonstrates minimal insight to level of (I) required to safely return home vs. level of assist he is continuing to receive on ECF. Occupational Therapy Goals 1) Pt will be SBA toilet task. 2) Pt will be SBA grooming/hygiene. 3) Pt will be Independent UB/LB dressing. 4) Pt will be SBA shower task. 5) Pt Yasmine Index of ADLs will improve by 2 points. Patient's Goal
[2018-09-16] MEDS ORDERED: WARFARIN SOD 5 MG TAB PO SCH (13:00)
--- NOTE | 2018-09-16 14:06 | NUR ---
14-day MDS completed with pt. C: 14, D: 03, E: no concerns, Q: pt voices plan to return to community, may be interested in [facility], but undecided at present. Will continue to follow for DC plans
[2018-09-16 15:33] VITALS: BP 137/77
--- NOTE | 2018-09-16 17:02 | Medical Nutrition Therapy ---
Nutrition Anthropometrics Height (Inches): 64.00 Height (Calculated Centimeters: 162.979671 Weight (Pounds): 127 Weight (Calculated Kilograms): 57.663 BMI: 21.8 [place] Nutrition Score: Probably Inadequate [place] Nutrition Risk Score: 16 Dietary Referral Nutrition Risk Factors: Nutrition Risk Comment: Nutritional Diagnosis Nutritional Risk Acuity 3: Fair Appetite, Fx & > 80 yrs Nutritional Risk Acuity 4: Good Appetite Past Medical History: CAD, Htn Nutritional Acuity: 3-Mild Energy Requirement: 1825 (M- StJ x 1.2 SF) Protein Requirement: 75 (1.3 gm/kg) Fluid Requirement: 1450 (25ml/kg) Diet Type: Diet as Tolerated SOFIA/REG Nutrition Intervention: Cont diet as ordered, Encourage intake, HS snack, Between meal supplement Drug: Warfarin Food Likes: pancakes! Do Not Serve Any of the Follow: Broccoli, Brussel Sprouts, Spinach, Erwin Lettuc e, Cranberry Juice Additional Diet Restrictions: OFFER NUTR SUPPLMENT Nutrition Monitoring & Eval Nutrition Goals: Eat 75-100% Meal Nutrition Follow-Up: Good Intake RD Patient Assessment Time: [address] Assessment Type: RD Re-Assessment Patient Nutrition Acuity: 3-Mild Follow Up Date: Sep 24, 2018 Nutritional Comment: 09/05: Pt admitted s/p fx of sacrum. Pt wt 116# on standing scale on med unit 09/01/18. Current wt 127# using bedscale. Wt change possibly r/t difference in scale or fluids. Will cont to monitor wt. Pt on regular diet and eating 50-75%. Will offer nutr supplment to increase kcal and protein. Cont to monitor and encourage intake. BK 09/09 Pt eating 75-100% of small to regular portions. No new wt or labs. Will cont to monitor and encourage intake. BK 09/16 Pt eating 75-100% of small to regular portions. No new wt or labs. Warfarin added. Will limit high Vit K foods. Will cont to monitor and encourage intake. DAVID LAI Sep 16, 2018 17:02
[2018-09-16] MEDS: PATCH REMOVAL 1 EA TP SCH (21:00)
[2018-09-16] MEDS: ACETAMINOPHEN 500 MG TAB PO PRN (21:08)
[2018-09-16] MEDS: ATORVASTATIN 10 MG TAB PO SCH (21:08)
[2018-09-17 07:10] LABS: INR 2.57
[2018-09-17 07:50] VITALS: BP 144/83
[2018-09-17] MEDS: POLYETHYLENE GLYCOL 17 GM PKT PO SCH (09:00)
[2018-09-17] MEDS: DILTIAZEM CD 180 MG CAPCR PO SCH (09:22)
[2018-09-17] MEDS: LIDOCAINE 5% PATCH TP SCH (09:22)
[2018-09-17] MEDS: DOCUSATE SODIUM 100 MG CAP PO SCH ×2 (09:22→20:52)
[2018-09-17] MEDS: WARFARIN SOD 2.5 MG TAB PO SCH (12:57)
[2018-09-17] MEDS: ACETAMINOPHEN 500 MG TAB PO PRN (15:14)
--- NOTE | 2018-09-17 15:20 | NUR ---
Occupational Therapy Impression CGA/close SBA ambulation [id number] with RW. No loss of balance. Dynamic standing balance with one UE for support reaching high/low. Pt with no loss of balance. MOCA score 20/30 indicating mile cognitive impairment. Declined further ADLs. Recommend 24/7 care and HH PT/OT/Speech upon discharge home. Occupational Therapy Goals 1) Pt will be SBA toilet task. 2) Pt will be SBA grooming/hygiene. 3) Pt will be Independent UB/LB dressing. 4) Pt will be SBA shower task. 5) Pt Yasmine Index of ADLs will improve by 2 points. Patient's Goal
[2018-09-17 15:35] VITALS: BP 110/70
[2018-09-17] MEDS: ATORVASTATIN 10 MG TAB PO SCH (20:52)
[2018-09-17] MEDS: PATCH REMOVAL 1 EA TP SCH (20:52)
[2018-09-18] MEDS: ACETAMINOPHEN 500 MG TAB PO PRN ×2 (01:10→20:35)
[2018-09-18 06:26] LABS: PLATELET COUNT, AUTOMATED 124 K/uL (150-450)
[2018-09-18 07:45] VITALS: BP 130/80
[2018-09-18] MEDS: LIDOCAINE 5% PATCH TP SCH (08:29)
[2018-09-18] MEDS: DOCUSATE SODIUM 100 MG CAP PO SCH ×2 (08:29→20:35)
[2018-09-18] MEDS: DILTIAZEM CD 180 MG CAPCR PO SCH (08:29)
[2018-09-18] MEDS: POLYETHYLENE GLYCOL 17 GM PKT PO SCH (08:31)
--- NOTE | 2018-09-18 12:32 | NUR ---
Occupational Therapy Impression Pt reporting he plans to use a 4WW vs RW that we have used on ECF. Obtained a 4WW for practice, pt demonstrating good safety awareness and control with 4WW. Set-up LB dressing. Independent threading, SBA pulling over hips including buttons/belt. Independent UB dressing. SBA toileting. Pt declined further ADLs. Reports no concerns with discharge home to be addressed with OT. Agreeable to OT and 12/03 [facility] for mobility/ADLs/IADLs. Occupational Therapy Goals 1) Pt will be SBA toilet task. 2) Pt will be SBA grooming/hygiene. 3) Pt will be Independent UB/LB dressing. 4) Pt will be SBA shower task. 5) Pt Yasmine Index of ADLs will improve by 2 points. Patient's Goal
--- NOTE | 2018-09-18 12:40 | OT ECF NOTE ---
Type of Note: 2-week progress note Primary Medical Diagnosis: Generalized weakness s/p pelvis fx sustained in fall at home. *WBAT* Occupational Therapy Evaluation Date: 09/04/18 SUBJECTIVE: Prior Hospitalization: COUNTS INCLUDE 234 BEDS AT THE [facility] 09/01/18-09/04/18 Prior Level of Function: Mod (I) for ADLs and most IADLs. Pt ambulated with cane prior and completed grocery shopping. Pt cares for spouse who has dementia. Pt reports spouse does all of the driving. Prior Living Status: Single level house Community Services: No known needs Home Accessibility: Stairs with rails All needs on one level Walk-in shower Equipment Owned: 4WW Cane Toilet riser Tub/shower chair Grab bars Lift chair Medical Complications/Past Medical History: Afib, Enlarged prostate, FRANDY, HTN. Please refer to EMR for further details. Psychosocial Support: Daughter in [place], [place]. Pain Scale (0-10): Reporting decreased pain with mobility. Positioning, ice, and emotional support offered. OBJECTIVE: Strength: MMT: Right Left Shoulder Flexion WFL WFL Elbow Flexion WFL WFL Wrist Extension WFL WFL Computer Laboratory Technician WFL WFL (5= normal, 4= good, 3= fair, 2= poor, 1= trace) ROM: Both upper extremities, Minimally limited Sensation: No paraesthesia reported Functional Transfer: Assistive Device: 4WW Transfer Ability: CGA, Close SBA ADL: Upper body dressing: Assistive device: Upper body dressing ability: Independent Lower body dressing: Assistive device: None Lower body dressing ability: Set-up Toileting: Assistive device: Toileting ability: SBA. Pt demonstrates inconsistent progression towards (I) with ADLs. Level of (I) varies day-to-day with OT vs. nursing staff. Grooming/hygiene: Assistive device: Seated Grooming ability: Set-up Bathing: Assistive device: Shower chair Bathing ability: SBA transfer. Independent bathing Standardized Assessment: Yasmine Index of Activities of Daily Livin/20 upon initial evaluation (09/04/18). upon discharge (09/18/18). ASSESSMENT: "Brayden" presents to [facility] with decreased mobility and (I) for ADLs/IADLs s/p fall at home and subsequent pelvis fx. He will continue to benefit from skilled OT services to improve activity tolerance and optimize (I) with ADLs prior to discharge home with spouse. Problem List/Current Limitations: Pain Decreased activity tolerance Decreased strength Generalized weakness Short Term Goals: 1) Pt will be SBA toilet task. Progressing towards. 2) Pt will be SBA grooming/hygiene. Goal met. 3) Pt will be Independent UB/LB dressing. Progressing towards. 4) Pt will be SBA shower task. Goal met. 5) Pt Yasmine Index of ADLs will improve by 2 points. Goal met. [place] Goals: Recommend return home with HH PT/OT/Speech and [facility] Recommendation for 24/7 care initially due to inconsistent (I) with ADLs and 20/30 MOCA score indicating mild cognitive impairment. Encourage increased services to promote safe transition home with mobility/ADLs/IADLs (medication management). Patient Goals: Return home to care for spouse Rehabilitation Prognosis: Good Barriers to Discharge: Pain, Decreased safety awareness, Decreased initiation for engagement in ADLs/IADLs PLAN: The patient will benefit from skilled occupational therapy services 5 times per week for 2 weeks including: Ther ex ADL training Safety training Ther act IADL training Home assessment Transfer training Adaptive equip training Bed mobility Energy conservation Thank you for this referral. If you have any questions, concerns, or comments about this report or plan, please contact me at . Delmis Alejo MS, OTR/L Occupational Therapist TAMMY
[2018-09-18] MEDS: WARFARIN SOD 2.5 MG TAB PO SCH (13:00)
--- NOTE | 2018-09-18 13:03 | Hospitalist Progress Note ---
Subjective Progress Notes Subjective No new concerns from the patient or nursing staff. Physical Exam Vital Signs Date Time Temp Pulse Resp B/P (MAP) Pulse Ox O2 Delivery O2 Flow Rate FiO2 09/18/18 08:34 93 Room Air 09/18/18 07:45 98.1 83 18 130/80 (97) Intake and Output 09/18/18 07:00 Intake Total 840 ml Output Total 10 ml Balance 830 ml Intake Oral 840 ml Output Urine Total 10 ml # Voids 6 # Bowel Movements 1 General Appearance: Alert, Awake, No Acute Distress, Afebrile Neuro: No Gross deficits Cardiovascular: Regular Rate and Rhythm (With a 2/4 CURT heard best at the apex.) Respiratory: Clear to Auscultation GI: Soft and Non-Tender Extremities: Warm, Perfused Psych: Appropriate Mood & Affect Result Diagram: 09/18/1860109/18/18601 Assessment and Plan Problems: (1) Fracture of sacrum without disruption of pelvic ring Status: Acute Assessment & Plan: He presented with a bilateral sacrum wing fracture. He was initially admitted to the medical floor. He was provided with pain control and PT/OT evaluated patient. It was recommended he have subacute short term rehab. He was transferred to [facility] for ongoing rehabilitation. He was placed on Tylenol and Lortab. He has had some mild confusion so the Lortab was not used. He improved slowly. Continue rehab. (2) Atrial fibrillation Status: Chronic Assessment & Plan: The patient has a history of chronic atrial fibrillation. He presented to the ER in atrial fibrillation with RVR. He was given IV diltiazem loading dose and then resumed his usual oral home dose. His rate re mained under control. His INR did creep up over 3 and his dose was adjusted. (3) Alkaline phosphatase elevation Status: Chronic Assessment & Plan: He presented with elevated alkaline phosphatase with unclear etiology, GGT was slightly elevated at 141. GGT was done to evaluate for biliary vs. bone source. He does admit to drinking a glass of wine daily for many years, and does use Tylenol for pain frequently. He appeared to have elevation noted from 2016. He continued to have mild elevation on scheduled Tylenol. Will continue periodic monitoring. Time Spent on Plan of Care: < 30 min HARLEY PERKINS MD Sep 18, 2018 13:03
[2018-09-18] MEDS ORDERED: IBUP-56 PO (13:23)
[2018-09-18] MEDS ORDERED: WARF2.5T11 PO (13:23)
[2018-09-18] MEDS ORDERED: LIDO700A19 TP (13:23)
--- NOTE | 2018-09-18 13:29 | Hospitalist Depart ---
Discharge Summary Reason for Hosp/Final Diag: (1) Fracture of sacrum without disruption of pelvic ring Status: Acute Hospital Course & Plan: He presented with a bilateral sacrum wing fracture. He was initially admitted to the medical floor. He was provided with pain control and PT/OT evaluated patient. It was recommended he have subacute short term rehab. He was transferred to [facility] for ongoing rehabilitation. He was placed on Tylenol and Lortab. He has had some mild confusion so the Lortab was not used. He improved slowly. He was discharged with Home Health nursing, CNAs, PT, OT and ST. (2) Atrial fibrillation Status: Chronic Hospital Course & Plan: The patient has a history of chronic atrial fibrillation. He presented to the ER in atrial fibrillation with RVR. He was given IV diltiazem loading dose and then resumed his usual oral home dose. His rate remained under control. His INR did creep up over 3 and his warfarin dose was adjusted. He will need to have an INR performed the week after discharge. (3) Alkaline phosphatase elevation Status: Chronic Hospital Course & Plan: He presented with elevated alkaline phosphatase with unclear etiology, GGT was slightly elevated at 141. GGT was done to evaluate for biliary vs. bone source. He does admit to drinking a glass of wine daily for many years, and does use Tylenol for pain frequently. He appeared to have elevation noted from 2017. He will need ongoing monitoring as an outpatient. Departure Weight (Pounds): 132 Weight (Ounces): 5.0 Result Diagram: 09/18/1860109/18/18601 Condition: Improved Discharge: Home, Home Health PT/OT Follow Up For: PT For Strengthening, OT For ADL's, ST Evaluation and Treat Home Health RN Follow Up For: Medication Management, Nursing Assessment Discharge Code Status: Full Code Time Spent: < 30 min Discharge Instructions Home Meds Active Scripts Warfarin Sodium (WARFARIN SODIUM) 2.5 Mg Tablet, 2.5 MG PO Marisela@1300, #40 TAB Take one tab (2.5mg) Sunday, Sunday, Sunday, and Sunday. Take 2 tabs (5mg) on Sunday and Sunday. Prov:HARLEY PERKINS MD 09/18/18 Lidocaine (Lidocaine) 5 % Adh..patch, 1 EACH TP QDAY, #1 BOX Wear for 12 hours, then off for 12 hours. Prov:HARLEY PERKINS MD 09/18/18 Ibuprofen (IBUPROFEN) 200 Mg Tablet, 400 MG PO Q6H PRN for PAIN, #20 TAB Prov:HARLEY PERKINS MD 09/18/18 Ketoconazole (KETOCONAZOLE) 120 Ml Shampoo, 1 LINCOLN TP DAILY for 30 Days, #120 TUBE 1 Refill Prov:TRAN ARTEAGA NPC 05/16/18 Hydrocortisone 2.5 % 30 GM CREAM (Hydrocortisone 2.5 % 30 GM CREAM) 2.5 % Cream.appl, 1 LINCOLN TP BID for 30 Days, #1 TUBE 1 Refill Prov:TRAN ARTEAGA NPC 05/16/18 Clobetasol Propionate 0.05% Solution (CLOBETASOL PROPIONATE 0.05% SOLUTION) 50 Ml Solution, 1 LINCOLN TP BID for 30 Days, #1 BOT 2 Refills Prov:TRAN ARTEAGA NPC 02/14/18 Reported Medications Lactose-Reduced Food/Fiber (Jevity 1.5 Prashanth Liquid) 0.06 Gram-1.5 Kcal/Ml Liquid, 8 OZ PO QDAY 09/03/18 Diltiazem Hcl (DILTIAZEM 24HR ER) 360 Mg Cap.er.24h, 1 CAP PO QDAY, CAP 04/21/15 Atorvastatin Calcium (ATORVASTATIN CALCIUM) 40 Mg Tablet, 0.5 TAB PO QDAY, TAB 02/22/15 Discontinued Reported Medications Warfarin Sodium (COUMADIN) 2.5 Mg Tablet, 2.5 MG PO sunday, sunday, sunday,Sunday09/01/18 Discontinued Scripts Warfarin Sodium (COUMADIN) 5 Mg Tablet, 5 MG PO DAILY, #90 TAB 1 Refill SUNDAY, SUNDAY, SUNDAY Prov:DEMI GUZMAN MD 09/05/18 Diet: Regular Activity: As Tolerated Copies to: DEMI GUZMAN MD ; Venous Thromboembolism Antithrombotics Is Pt On Any Antithrombotics?: Yes [id number] Certification Face to Face Home Health Certification Institutional Provider conducted the [id number] encounter. Electronic Undersigning Physician Certifies Home Health. I certify that the patient has been under my care and that I had a [id number] encounter that meets the physician [id number] encounter requirements with this patient. This patient is home-bound due to safety issues and continues to require assistance with ADL's. I certify that based on my findings, that Nursing, Aides and the following Home Health services are medically necessary: PT/OT/ST Medical Necessity: Nursing, Rehab Date Face to Face Conducted: Sep 18, 2018 Problem Qualifiers (1) Atrial fibrillation: Atrial fibrillation type: chronic Qualified Codes: I48.2 - Chronic atrial fibrillation HARLEY PERKINS MD Sep 18, 2018 13:29
--- NOTE | 2018-09-18 14:56 | NUR ---
Physical Therapy Impression Pt demonstrating overall improvement in functional mobility currently requiring SBA for bed mobility, SBA for standing and CGA for sitting, and CGA to ambulate 60' with 4-wheeled walker. Please see PN for additional details. Plan for additional stair training next visit. Physical Therapy Goals 1. Pt to be modified indep with all bed mobility and supine to/from sit transfers 2. Pt to be modified indep with sit to/from stand transfers 3. Pt to ambulate x 150' with least restrictive device and pain in manageable range 4. Pt to alena up/down 4 steps with rail and SBA/modified indep Patient's Goals
--- NOTE | 2018-09-18 15:00 | NUR ---
ALEENA MDS completed with pt. C: 14, D: 02, E: no concerns, Q: pt voices plan to return to community, referral made for [facility] and daughter is making arrangements through [facility] for private caregivers.
--- NOTE | 2018-09-18 15:03 | PT ECF NOTE ---
Type of Note: Progress Note 09/18/18 Primary Medical Diagnosis: Generalized weakness; s/p pelvis fx (B) sacral wings) sustained in fall at home. *WBAT* Physical Therapy Evaluation Date: 09/04/18 SUBJECTIVE: Prior Hospitalization: [facility] 09/01/18-09/04/18 Prior Level of Function: Mod (I) for ADLs and most IADLs. Pt ambulated with cane prior and completed grocery shopping. Pt cares for spouse who has dementia. Pt reports spouse does all of the driving. Prior Living Status: Single level house Community Services: No known needs Home Accessibility: Stairs with rails; All needs on one level; Walk-in shower Equipment Owned: Front wheeled walker; Cane; Toilet riser; Tub/shower chair Medical Complications/Past Medical History: Afib, Enlarged prostate, FRANDY, HTN. Please refer to EMR for further details. Psychosocial Support: Daughter in [place], [place]. Pain Scale (0-10): Reporting increased pain with mobility. Positioning and emotional support offered. OBJECTIVE: Strength: MMT not performed to B) LE's due to increased discomfort; functional mobility indicates 3/5 overall ROM: (please note any abnormalities) WFL with limitations primarily due to pain, significant forward flexed posture noted Sensation: (please note any abnormalities) No paresthesias reported Bed Mobility: SBA supine<>sit from a flat hospital bed, no rail Transfers: CGA-SBA, performance inconsistent Assistive Device: Front wheeled walker and 4-wheeled walker with appropriate use of breaks noted Gait: CGA [id number] with RW; 60' with 4-wheeled walker Stairs: ascend/descend 4 stairs with bilateral rails, CGA ASSESSMENT: Pt has made progress with functional mobility and will continue to benefit from skilled PT for functional mobility and safety training, especially stair training. Rehab team does have concerns regarding safety at home due to inconsistencies with independence with functional mobility and safety with respect to caring for his and is recommending 24 hour care in order to maximize safety. Problem List/Current Limitations: Pain, Decreased WB, Decreased activity alena, Decreased balance Short Term Goals: Progressing. Pt will likely be SBA at time of DC. 1. Pt to be modified indep with all bed mobility and supine to/from sit transfers 2. Pt to be modified indep with sit to/from stand transfers 3. Pt to ambulate x 150' with least restrictive device and pain in manageable range 4. Pt to alena up/down 4 steps with rail and SBA/modified indep Mcfp Goals: Pt to be fully indep with all basic self care and ADL's with pain in manageable range. Patient Goals: Return home with Rehabilitation Prognosis: Good Concerns for Discharge: Insistence on being discharged home. PLAN: The patient will benefit from skilled physical therapy services 5 times per week for 2 weeks including: Therapeutic Exercise Therapeutic Activities, Transfer Training, Gait Training, Stair Training, Manual Therapy, ADL's, Safety Training, Pt/Caregiver Training Bed Mobility Thank you for this referral. If you have any questions, concerns, or comments about this report or plan, please contact me at . More Cronin, PT, DPT, GCS MTDD
[2018-09-18 16:20] VITALS: BP 114/71
[2018-09-18] MEDS: PATCH REMOVAL 1 EA TP SCH (20:35)
[2018-09-18] MEDS: ATORVASTATIN 10 MG TAB PO SCH (20:35)
[2018-09-19] MEDS: ACETAMINOPHEN 500 MG TAB PO PRN ×2 (06:19→20:27)
[2018-09-19 08:24] VITALS: BP 134/88
[2018-09-19] MEDS: DOCUSATE SODIUM 100 MG CAP PO SCH ×2 (08:50→20:27)
[2018-09-19] MEDS: DILTIAZEM CD 180 MG CAPCR PO SCH (08:50)
[2018-09-19] MEDS: LIDOCAINE 5% PATCH TP SCH (08:51)
[2018-09-19] MEDS: POLYETHYLENE GLYCOL 17 GM PKT PO SCH (08:52)
--- NOTE | 2018-09-19 10:14 | NUR ---
Physical Therapy Impression Pt reports that he plans to have 24 hr care from [facility] services upon d/c home. PT provided minimal verbal cues to assess pt's ability to rise to stand with 4WW. Pt does demonstrate good use and safety with brakes on 4WW but did have a major LOB backwards upon standing from chair d/t failure to move to edge of chair prior to standing. PT educated pt on the importance of this prior to standing, pt demonstrated minimal carry over with further transfers during therapy session. Pt with improved tolerance to ambulation with use of 4WW, PT provided verbal cues for proximity to walker, pt with improved safety with verbal cues. When transitioning to stair negotiation pt had major LOB requiring min-modA from PT to prevent fall. Pt reports that he is unsure why he lost his balance, it appears that the pt demonstrates decreased safety when hurrying through transitions. With initial attempt at stair negotiation, pt was impulsive with mobility, with poor placement of feet on stairs causing imbalance and requiring Matilda and close CGA. With second attempt at stair negotiation, pt demonstrated improved safety with slowed movement. Rec that pt have assistance at all times during functional mobility, especially during stair negotiation. PT educated pt on importance of slowing down with functional mobility and pt verbalized understanding. 24 hr care is recommended at D/C. OT reports lengthy discussion with the pt's son regarding level of assist recommended upon d/c home. Physical Therapy Goals 1. Pt to be modified indep with all bed mobility and supine to/from sit transfers 2. Pt to be modified indep with sit to/from stand transfers 3. Pt to ambulate x 150' with least restrictive device and pain in manageable range 4. Pt to alena up/down 4 steps with rail and SBA/modified indep Patient's Goals
[2018-09-19] MEDS: WARFARIN SOD 2.5 MG TAB PO SCH (13:39)
--- NOTE | 2018-09-19 14:30 | NUR ---
OCCUPATIONAL THERAPY Dressing Assistance: [id number] requires increased assist for dressing. Recommend pulling clothing over hips standing in front of secure chair as pt utilizes chair for support. Dressing Aid Required: Able to complete with set-up from low surface Bathing Assistance: Independent bathing. SBA transfer. Bathing Equipment: Shower Chair Home Assessment: Not Completed Feeding Assistance: Independent Feeding Specialized Equipment: None Toilet Use: Standby Assistance-Occasionally requires increased assist pending time of day and assist for thoroughness Verbalizes Needs: Yes Understands Precautions: Yes Cooperative: Yes Family Teaching: No Occupational Therapy Comment: Encourage 12/03 private care to assist with all ADLs/IADLs/functional mobility.
[2018-09-19 17:10] VITALS: BP 128/81
[2018-09-19] MEDS: ATORVASTATIN 10 MG TAB PO SCH (20:27)
[2018-09-19] MEDS: PATCH REMOVAL 1 EA TP SCH (20:28)
[2018-09-20 07:39] VITALS: BP 145/41
[2018-09-20] MEDS: DOCUSATE SODIUM 100 MG CAP PO SCH (08:51)
[2018-09-20] MEDS: LIDOCAINE 5% PATCH TP SCH (08:52)
[2018-09-20] MEDS: DILTIAZEM CD 180 MG CAPCR PO SCH (08:52)
[2018-09-20] MEDS: POLYETHYLENE GLYCOL 17 GM PKT PO SCH (08:52)
--- NOTE | 2018-09-20 14:21 | OT ECF NOTE ---
Type of Note: Discharge Note Primary Medical Diagnosis: Generalized weakness s/p pelvis fx sustained in fall at home. *WBAT* Occupational Therapy Evaluation Date: 09/04/18 SUBJECTIVE: Prior Hospitalization: [facility] 09/01/18-09/04/18 Prior Level of Function: Mod (I) for ADLs and most IADLs. Pt ambulated with cane prior and completed grocery shopping. Pt cares for spouse who has dementia. Pt reports spouse does all of the driving. Prior Living Status: Single level house Community Services: No known needs Home Accessibility: Stairs with rails All needs on one level Walk-in shower Equipment Owned: 4WW Cane Toilet riser Tub/shower chair Grab bars Lift chair Medical Complications/Past Medical History: Afib, Enlarged prostate, FRANDY, HTN. Please refer to EMR for further details. Psychosocial Support: Daughter in [place], [place]. Pain Scale (0-10): Reporting decreased pain with mobility. Positioning, ice, and emotional support offered. OBJECTIVE: Strength: MMT: Right Left Shoulder Flexion WFL WFL Elbow Flexion WFL WFL Wrist Extension WFL WFL Licensed Practical Nurse Clinic Nurse WFL WFL (5= normal, 4= good, 3= fair, 2= poor, 1= trace) ROM: Both upper extremities, Minimally limited Sensation: No paraesthesia reported Functional Transfer: Assistive Device: 4WW Transfer Ability: CGA, Close SBA ADL: Upper body dressing: Assistive device: Upper body dressing ability: Independent Lower body dressing: Assistive device: None Lower body dressing ability: Set-up Toileting: Assistive device: Toileting ability: SBA. Pt demonstrates inconsistent progression towards (I) with ADLs. Level of (I) varies day-to-day with OT vs. nursing staff. Grooming/hygiene: Assistive device: Seated Grooming ability: Set-up Bathing: Assistive device: Shower chair Bathing ability: SBA transfer. Independent bathing Standardized Assessment: Yasmine Index of Activities of Daily Livin/20 upon initial evaluation (09/04/18). upon discharge (09/20/18) ASSESSMENT: "Brayden" presents to [facility] with decreased mobility and (I) for ADLs/IADLs s/p fall at home and subsequent pelvis fx. He will continue to benefit from skilled OT services to improve activity tolerance and optimize (I) with ADLs prior to discharge home with spouse. Problem List/Current Limitations: Pain Decreased activity tolerance Decreased strength Generalized weakness Short Term Goals: 1) Pt will be SBA toilet task. Goal met although inconsistent with (I). Rec 24/7care. 2) Pt will be SBA grooming/hygiene. Goal met. 3) Pt will be Independent UB/LB dressing. Goal met although inconsistent with (I). Rec 24/7care. 4) Pt will be SBA shower task. Goal met. 5) Pt Yasmine Index of ADLs will improve by 2 points. Goal met. Correction Goals: [facility] Recommendation for 24/7 care initially due to inconsistent (I) with ADLs and 20/30 MOCA score indicating mild cognitive impairment. Encourage increased services to promote safe transition home with mobility/ADLs/IADLs (medication management). Patient Goals: Return home to care for spouse Rehabilitation Prognosis: Good Barriers to Discharge: Pain, Decreased safety awareness, Decreased initiation for engagement in ADLs/IADLs PLAN: The patient will discharge home with Home Health PT/OT/Speech and 24/ private caregiver assist for ADLs/IADLs including functional mobility. Discussed with pt, spouse, and son recommendations and assist required at home. Pt and son verbalized understanding. Thank you for this referral. If you have any questions, concerns, or comments about this report or plan, please contact me at . Delmis Alejo MS, OTR/L Occupational Therapist TAMMY
--- NOTE | 2018-09-20 16:44 | PT ECF NOTE ---
Type of Note: Discharge Summary 09/20/18 Primary Medical Diagnosis: Generalized weakness; s/p pelvis fx (B) sacral wings) sustained in fall at home. *WBAT* Physical Therapy Evaluation Date: 09/04/18 SUBJECTIVE: Prior Hospitalization: [facility] 09/01/18-09/04/18 Prior Level of Function: Mod (I) for ADLs and most IADLs. Pt ambulated with cane prior and completed grocery shopping. Pt cares for spouse who has dementia. Pt reports spouse does all of the driving. Prior Living Status: Single level house Community Services: No known needs Home Accessibility: Stairs with rails; All needs on one level; Walk-in shower Equipment Owned: Front wheeled walker; Cane; Toilet riser; Tub/shower chair Medical Complications/Past Medical History: Afib, Enlarged prostate, FRANDY, HTN. Please refer to EMR for further details. Psychosocial Support: Daughter in [place], [place]. Pain Scale (0-10): Reporting increased pain with mobility. Positioning and emotional support offered. OBJECTIVE: Strength: MMT not performed to B) LE's due to increased discomfort; functional mobility indicates 3/5 overall ROM: (please note any abnormalities) WFL with limitations primarily due to pain, significant forward flexed posture noted Sensation: (please note any abnormalities) No paresthesias reported Bed Mobility: SBA supine<>sit from a flat hospital bed, no rail Transfers: CGA-SBA, performance inconsistent Assistive Device: Front wheeled walker and 4-wheeled walker with appropriate use of breaks noted Gait: CGA [id number]' with RW; 150' with 4-wheeled walker Stairs: ascend/descend 8 stairs with rail, CGA/Min A ASSESSMENT: Pt requesting to be discharged home. Pt reports he has arranged 24 hour care and his son will be staying with him over the weekend. Strongly encouraged Pt to have someone with him during functional mobility, especially stairs. Pt verbalized understanding. Problem List/Current Limitations: Pain, Decreased WB, Decreased activity alena, Decreased balance Short Term Goals: Not Met, Pt requesting to be discharged home. 1. Pt to be modified indep with all bed mobility and supine to/from sit transfers 2. Pt to be modified indep with sit to/from stand transfers 3. Pt to ambulate x 150' with least restrictive device and pain in manageable range 4. Pt to alena up/down 4 steps with rail and SBA/modified indep [employer] Goals: Pt to be fully indep with all basic self care and ADL's with pain in manageable range. Patient Goals: Return home with Rehabilitation Prognosis: Good Concerns for Discharge: Insistence on being discharged home. PLAN: DC home with home health and 24 hour care. Thank you for this referral. If you have any questions, concerns, or comments about this report or plan, please contact me at . More Cronin, PT, DPT, GCS MTDD
== END 2018-09-20 12:30 | disposition home or self-care (01) | DRG 561 ==
LOC: ECF 10:50
PROVIDERS: ADMIT Internal Medicine; ATTEND Internal Medicine
DX: S32.10XD Unspecified fracture of sacrum, subsequent encounter for fracture with routine healing (principal); I48.2 Chronic atrial fibrillation; R74.8 Abnormal levels of other serum enzymes; N40.0 Benign prostatic hyperplasia without lower urinary tract symptoms; I10 Essential (primary) hypertension; Z79.01 Long term (current) use of anticoagulants; Z91.81 History of falling; Z88.0 Allergy status to penicillin; W18.30XD Fall on same level, unspecified, subsequent encounter
CPT/HCPCS: 36415; 82040; 82247; 82310; 82374; 82435; 82565; 82947; 84075; 84132; 84155; 84295; 84450; 84460; 84520; 85025; 85610; 97161; 97166

== ENCOUNTER → 2018-10-03 | Outpatient (REF) | payer MEDICARE, OTHER ==
[2018-09-02 10:17] VITALS: BMI 19.9
[~2018-10-03] MED LIST changes: +IBUP-56 PO; +LIDO700A19 TP; +WARF2.5T11 PO
== END ==
LOC: ZZSENDIN 14:53
PROVIDERS: ATTEND Internal Medicine
DX: R35.0 Frequency of micturition (principal)
CPT/HCPCS: 81001

== ENCOUNTER → 2018-11-25 | Outpatient (CLI) | payer MEDICARE, OTHER ==
[2018-09-02 10:17] VITALS: BMI 19.9
[~2018-11-25] MED LIST changes: +CHOL10005 PO; +CYAN100058 PO
[2018-11-25 10:20] LABS: PLATELET COUNT, AUTOMATED 117 K/uL (150-450)
== END ==
LOC: LAB 09:57
PROVIDERS: ATTEND Family Medicine
DX: S32.10XA Unspecified fracture of sacrum, initial encounter for closed fracture (principal); R53.83 Other fatigue; I48.91 Unspecified atrial fibrillation
CPT/HCPCS: 36415; 82040; 82247; 82306; 82310; 82374; 82435; 82565; 82947; 84075; 84132; 84155; 84295; 84443; 84450; 84460; 84520; 85025

== ENCOUNTER → 2018-12-03 | Outpatient (CLI) | payer MEDICARE, OTHER ==
[2018-09-02 10:17] VITALS: BMI 19.9
[~2018-12-03] MED LIST changes: -CYAN100T25 PO; +CYAN100T26 PO
--- NOTE | 2018-12-04 08:35 | RADIOLOGY IMAGING REPORT ---
FACILITY: [facility] PATIENT NAME: Vipul Xiao : 1930 MR: [id number] V: [id number] EXAM DATE: ORDERING PHYSICIAN: KENDELL BENZ TECHNOLOGIST: Location: [facility] - [place] Patient: Vipul Xiao : 1930 Visit/Account:[id number] Date of Sevice: 12/03/2018 DEXA Scan Clinical history: Screening. Comparison: 04/03/2002. LUMBAR SPINE: Patient has had previous lumbar laminectomies. The L1 vertebral body is excluded from the average due to reactive endplate sclerotic changes which abnormally increased the Z score of the L1 vertebral body. The bone mineral density (BMD) measured from L2-L4 correlates with a Z-score of 0.5 and a T-score of -0.9 which is within lower normal range as defined by the World Health Organiza tion. The corresponding risk of fracture in the lumbar spine is mildly increased compared with a you ng adult reference population. This value has decreased by 20.7 % since the prior study. More than 5% change is considered significant. HIP: Bone mineral density (BMD) measured in the Left Total Hip region correlates with a Z-score of 0.1 and a T-score of -1.7. The T-score of the femoral neck is -2.2. The lower of the two T-scores is osteopenic as defined by the World Health Organization. The corresponding risk of fracture in the hip is moderately increased compared with a young adult r eference population. This value has decreased by three % since the prior study. More than 5% change is considered significant. Bone mineral density (BMD) measured in the Left Femoral Neck region measures 0.780 g/cm?. IMPRESSION: 1. Lumbar spine: Within normal lower range. There has been significant decrease in the bone minera l density since the previous exam. However, if patient's laminectomies were performed between the pr ior and current examination this may artifactually increase the discrepancy between current and prior scores 2. Left Total Hip: Osteopenic. There has been no significant change in the bone mineral density sin ce the previous exam. The next DEXA scan of this patient should include the following sites: L1-L4 and Left hip. FRAX? WHO Fracture Risk Assessment Tool link: <http://www.shef.ac.uk/FRAX/tool.jsp?locationValue=9> PLEASE NOTE: 1) The World Health Organization defines low BMD as follows: T-score Normal > -1 Osteopenia < -1 and > -2.5 Osteoporosis < -2.5 without fractures Established osteoporosis < -2.5 with fractures 2) In general, you may wish to consider: Diagnosis Treatment Follow-up DEXA Normal BMD Prevention 2-3 years Osteopenia Prevention/therapy 1-2 years Osteoporosis Therapy Yearly 3) Fracture risk estimated from the T-score is more accurate for vertebral fractures (often spontane ous) than for hip fractures. Report Dictated By: Milton Curran MD at 12/04/2018 8:25 AM Report E-Signed By: Milton Curran MD at 12/04/2018 8:32 AM WSN:[id number]
== END ==
LOC: RAD 01:25
PROVIDERS: ATTEND Family Medicine
DX: M85.80 Other specified disorders of bone density and structure, unspecified site (principal)
CPT/HCPCS: 77080

== ENCOUNTER → 2019-02-04 | Outpatient (CLI) | payer MEDICARE, OTHER ==
[2018-09-02 10:17] VITALS: BMI 19.9
[~2019-02-04] MED LIST changes: +DILT300C6 PO
== END ==
LOC: US 07:00
PROVIDERS: ATTEND Family Medicine
DX: I51.7 Cardiomegaly (principal); I07.1 Rheumatic tricuspid insufficiency
CPT/HCPCS: 93306